=== PATIENT | female | born 1980 | race African-American/Black ===

== ENCOUNTER 2016-12-28 15:02 | Emergency (ER) | payer MEDICAID ==
[~2016-12-28] VITALS: Ht 170.2 cm; Wt 65.8 kg
[2016-12-28 15:16] VITALS: BP 130/95
== END 2016-12-28 23:16 | disposition left against medical advice (07) ==
LOC: ER 15:08
DX: R10.9 Unspecified abdominal pain (principal); Z53.21 Procedure and treatment not carried out due to patient leaving prior to being seen by health care provider

== ENCOUNTER 2017-10-04 12:08 | Emergency (ER) | payer MEDICAID ==
[~2017-10-04] VITALS: Ht 170.2 cm; Wt 63.5 kg
[2017-10-04 12:48] VITALS: BP 153/99
[2017-10-04] MEDS ORDERED: ACETAMINOPHEN 325 MG TAB PO ONE (14:45)
[2017-10-04] MEDS ORDERED: ONDANSETRON ODT 4 MG TAB PO ONE (15:00)
== END 2017-10-04 15:05 | disposition home or self-care (01) ==
LOC: EDUNIT# 12:08 → ER 12:08 → EDBD 12:08 → ER 15:02
DX: J20.9 Acute bronchitis, unspecified (principal); I10 Essential (primary) hypertension; Z88.0 Allergy status to penicillin
CPT/HCPCS: 71046; 99284; Q0162

== ENCOUNTER 2022-10-01 18:15 | Emergency (ER) | payer MEDICAID ==
[~2022-10-01] VITALS: Ht 170.2 cm; Wt 72.2 kg
[2022-10-01] MEDS ORDERED: cloNIDine HCL 0.1 MG TAB PO ONE (19:00)
[2022-10-01 19:25] LABS: Basophils # (auto) 0.1 10 ^3/uL (0-0.2); Basophils % (auto) 0.8 % (0.0-2.0); Eosinophils # (auto) 0 10 ^3/uL (0-0.8); Eosinophils % (auto) 0.5 % (0.0-7.0); Hemoglobin 12.8 g/dL (12.2-16.2); Lymphocytes # (auto) 1.9 10 ^3/uL (0.4-5.4); Lymphocytes % (auto) 30.6 % (10.0-50.0); Mean Corpuscular Hemoglobin 30.6 pg (28.0-32.0); Mean Corpuscular Hgb Conc. 33.7 g/dL (32.0-36.0); Monocytes # (auto) 0.4 10 ^3/uL (0-1.3); Monocytes % (auto) 6.2 % (0.0-12.0); Neutrophils # (auto) 3.8 10 ^3/uL (1.6-8.6); Neutrophils % (auto) 61.9 % (37.0-80.0); Red Blood Cells 4.18 10^6/uL (4.0-5.20); Red Cell Distribution Width 15.6 % (11.8-14.3); White Blood Cell 6.1 10^3/uL (4.4-10.8)
[2022-10-01 19:35] LABS: Albumin 3.7 g/dL (3.4-5.0); Calcium 9.3 mg/dL (8.5-10.1); Potassium 3.9 mmol/L (3.5-5.1)
[2022-10-01 19:38] LABS: BUN/Creatinine Ratio 15.7
[2022-10-01 19:40] LABS: Bilirubin, Total 0.5 mg/dL (0.2-1.0); Total Protein 7.5 g/dL (6.4-8.2)
[2022-10-01 19:46] LABS: INR 0.98 (0.9-1.15); Partial Thromboplastin Time 23.9 sec (24.6-33.4)
[2022-10-01] MEDS ORDERED: CEPH-510 PO (20:12)
[2022-10-01 20:38] VITALS: BP 152/98
== END 2022-10-01 21:05 | disposition home or self-care (01) ==
LOC: ER 18:15
DX: I10 Essential (primary) hypertension (principal); N39.0 Urinary tract infection, site not specified; F17.210 Nicotine dependence, cigarettes, uncomplicated; Z88.0 Allergy status to penicillin
CPT/HCPCS: 36415; 71045; 80053; 83880; 84484; 85025; 85610; 85730; 93005

== ENCOUNTER 2023-02-22 00:43 | Emergency (ER) | payer MEDICAID ==
[~2023-02-22] VITALS: Ht 170.2 cm; Wt 69.5 kg
[~2023-02-22 00:43] MED LIST: CEPH-510 PO
[2023-02-22 00:59] VITALS: BP 151/102
[2023-02-22 01:55] LABS: Basophils # (auto) 0 10 ^3/uL (0-0.2); Basophils % (auto) 0.4 % (0.0-2.0); Eosinophils # (auto) 0.1 10 ^3/uL (0-0.8); Eosinophils % (auto) 1.4 % (0.0-7.0); Hematocrit 33.9 % (36.0-46.0); Hemoglobin 11.1 g/dL (12.2-16.2); Mean Corpuscular Hemoglobin 29.4 pg (28.0-32.0); Mean Corpuscular Hgb Conc. 32.7 g/dL (32.0-36.0); Mean Corpuscular Volume 89.9 fL (80.0-100.0); Monocytes # (auto) 0.6 10 ^3/uL (0-1.3); Monocytes % (auto) 6.2 % (0.0-12.0); Neutrophils # (auto) 7.5 10 ^3/uL (1.6-8.6); Red Blood Cells 3.77 10^6/uL (4.0-5.20); Red Cell Distribution Width 16.1 % (11.8-14.3); White Blood Cell 10.3 10^3/uL (4.4-10.8)
[2023-02-22 02:08] LABS: Albumin 3.1 g/dL (3.4-5.0); BUN/Creatinine Ratio 19.4 (10.0-20.0); Calcium 8.8 mg/dL (8.5-10.1); INR 0.92 (0.9-1.15); Partial Thromboplastin Time 25.9 sec (24.6-33.4); Potassium 3.7 mmol/L (3.5-5.1)
[2023-02-22 02:12] LABS: Bilirubin, Total 0.3 mg/dL (0.2-1.0); Total Protein 7.1 g/dL (6.4-8.2)
[2023-02-23] MEDS ORDERED: CLON-853 PO (04:35)
[2023-02-23] MEDS ORDERED: HYDR25TA5 PO (04:35)
[2023-02-23] MEDS ORDERED: INTE1INJ3 SC (04:35)
[2023-02-23] MEDS ORDERED: CLON0.1T PO (04:35)
== END 2023-02-22 08:03 | disposition home or self-care (01) ==
LOC: ER 00:43
DX: R07.89 Other chest pain (principal); R20.2 Paresthesia of skin; I10 Essential (primary) hypertension; F17.210 Nicotine dependence, cigarettes, uncomplicated; Z79.899 Other long term (current) drug therapy; Z88.0 Allergy status to penicillin
CPT/HCPCS: 36415; 70450; 71045; 71250; 72125; 74176; 80053; 83735; 83880; 84443; 84484; 85025; 85379; 85610; 85730; 93005

== ENCOUNTER 2023-02-22 08:11 | Inpatient (IN) | payer MEDICAID ==
[~2023-02-22] VITALS: Ht 170.2 cm; Wt 75.8 kg
[2023-02-22] MEDS ORDERED: methylPREDNISolone SOD SUCC 125 MG/2 ML VL IV ONE (10:45)
[2023-02-22] MEDS ORDERED: methylPREDNISolone SOD SUCC 1,000 MG in SODIUM CHL 0.9% 100 ML IV ONE (12:15)
[2023-02-22] MEDS ORDERED: MORPHINE SULFATE INJ 2 MG/ml SYRG IV PRN (13:30)
[2023-02-22] MEDS ORDERED: NITROGLYCERIN 0.4 MG SL TAB SL PRN (13:30)
[2023-02-22] MEDS ORDERED: methylPREDNISolone SOD SUCC 125 MG/2 ML VL IV SCH (14:30)
[2023-02-22] MEDS: HYDROcodone-ACET 5/325MG TAB PO PRN (14:50)
[2023-02-22 18:21] LABS: Basophils # (auto) 0 10 ^3/uL (0-0.2); Basophils % (auto) 0.1 % (0.0-2.0); Eosinophils # (auto) 0 10 ^3/uL (0-0.8); Eosinophils % (auto) 0.1 % (0.0-7.0); Hemoglobin 11.9 g/dL (12.2-16.2); Lymphocytes # (auto) 0.4 10 ^3/uL (0.4-5.4); Mean Corpuscular Hemoglobin 29.7 pg (28.0-32.0); Mean Corpuscular Volume 90.1 fL (80.0-100.0); Monocytes # (auto) 0.1 10 ^3/uL (0-1.3); Monocytes % (auto) 0.6 % (0.0-12.0); Neutrophils # (auto) 8.3 10 ^3/uL (1.6-8.6); Neutrophils % (auto) 94.2 % (37.0-80.0); Red Cell Distribution Width 16.4 % (11.8-14.3); White Blood Cell 8.8 10^3/uL (4.4-10.8)
[2023-02-22] MEDS ORDERED: LORazepam 2MG/ML-1ML VIAL IV PRN (18:30)
[2023-02-22 18:39] LABS: Albumin 3.6 g/dL (3.4-5.0); Calcium 8.9 mg/dL (8.5-10.1); Potassium 3.9 mmol/L (3.5-5.1)
[2023-02-22 18:51] LABS: BUN/Creatinine Ratio 15.3 (10.0-20.0); Bilirubin, Total 0.2 mg/dL (0.2-1.0)
[2023-02-22] MEDS: ALPRAZolam 0.5 MG TAB PO PRN (19:09)
[2023-02-22 21:46] VITALS: BP 167/110
[2023-02-22 22:00] VITALS: BP 167/110
[2023-02-22] MEDS: AMITRIPTYLINE HCL 25 MG TAB PO SCH (22:49)
[2023-02-22] MEDS: cloNIDine HCL 0.1 MG TAB PO PRN (22:50)
[2023-02-23] VITALS (8 sets, daily range): BP systolic 125–154; BP diastolic 84–100
[2023-02-23] MEDS ORDERED: CLON-853 PO (04:35)
[2023-02-23] MEDS ORDERED: HYDR25TA5 PO (04:35)
[2023-02-23] MEDS ORDERED: CLON0.1T PO (04:35)
[2023-02-23] MEDS ORDERED: INTE1INJ3 SC (04:35)
[2023-02-23] MEDS: FAMOTIDINE 20 MG TAB PO SCH (08:19)
[2023-02-23] MEDS: METOPROLOL SUCCINATE XL 50 MG TAB PO SCH (08:20)
[2023-02-23] MEDS: HYDROcodone-ACET 5/325MG TAB PO PRN ×2 (08:22→14:34)
[2023-02-23] MEDS: LISINOPRIL 10 MG TAB PO SCH (08:22)
[2023-02-23] MEDS: HCTZ 25 MG TAB PO SCH (08:23)
[2023-02-23] MEDS ORDERED: methylPREDNISolone SOD SUCC 125 MG/2 ML VL IM SCH (10:00)
[2023-02-23] MEDS: methylPREDNISolone SOD SUCC 1,000 MG in SODIUM CHL 0.9% 250 ML IV SCH (10:30)
[2023-02-23] MEDS: ENOXAPARIN SOD 40 MG/0.4 ML SYRINGE SC SCH (10:48)
[2023-02-23 11:18] LABS: Urine Bacteria FEW /hpf (None Seen); Urine Blood Negative /uL (Negative); Urine Specific Gravity 1.023 (1.001-1.035); Urine WBC 1 /hpf (0 - 5)
[2023-02-23 11:22] LABS: Alcohol, Urine < 3.0 mg/dL (0-10); Amphetamine Screen, Urine NEGATIVE (NEGATIVE); Barbiturate Scree,Urine NEGATIVE (NEGATIVE); Benzodiazephine Screen, Urine POSITIVE (NEGATIVE); Cannabinoid Screen, Urine NEGATIVE (NEGATIVE); Cocaine Screen, Urine NEGATIVE (NEGATIVE); Opiate Scree,Urine NEGATIVE (NEGATIVE); Phencyclidine Screen, Urine NEGATIVE (NEGATIVE)
[2023-02-23] MEDS ORDERED: GADOTERATE MEG 10 MMOL/20ml INJ (0.5MMOL/ml) IV ONE (11:23)
[2023-02-23] MEDS: ALPRAZolam 0.5 MG TAB PO PRN (15:38)
[2023-02-23] MEDS: cloNIDine HCL 0.1 MG TAB PO PRN (16:37)
[2023-02-23] MEDS: AMITRIPTYLINE HCL 25 MG TAB PO SCH (21:46)
[2023-02-24 05:00] VITALS: BP 156/99
[2023-02-24] MEDS: cloNIDine HCL 0.1 MG TAB PO PRN (06:36)
[2023-02-24 09:00] VITALS: BP 159/89
[2023-02-24] MEDS: BETASERON SC SCH (10:00)
[2023-02-24] MEDS: HYDROcodone-ACET 5/325MG TAB PO PRN ×2 (10:18→18:54)
[2023-02-24] MEDS: METOPROLOL SUCCINATE XL 50 MG TAB PO SCH (10:19)
[2023-02-24] MEDS: LISINOPRIL 10 MG TAB PO SCH (10:19)
[2023-02-24] MEDS: FAMOTIDINE 20 MG TAB PO SCH (10:20)
[2023-02-24] MEDS: ENOXAPARIN SOD 40 MG/0.4 ML SYRINGE SC SCH (10:21)
[2023-02-24] MEDS: HCTZ 25 MG TAB PO SCH (10:21)
[2023-02-24] MEDS: methylPREDNISolone SOD SUCC 1,000 MG in SODIUM CHL 0.9% 250 ML IV SCH (11:22)
[2023-02-24 13:00] VITALS: BP 152/95
[2023-02-24] MEDS: ALPRAZolam 0.5 MG TAB PO PRN (13:39)
[2023-02-24 17:00] VITALS: BP 149/91
[2023-02-24 22:00] VITALS: BP 168/92
[2023-02-24] MEDS: AMITRIPTYLINE HCL 25 MG TAB PO SCH (22:27)
[2023-02-25] MEDS: ALPRAZolam 0.5 MG TAB PO PRN (01:53)
[2023-02-25 05:00] VITALS: BP 160/100
[2023-02-25 06:38] VITALS: BP 141/101
[2023-02-25 09:00] VITALS: BP 151/99
[2023-02-25] MEDS: ENOXAPARIN SOD 40 MG/0.4 ML SYRINGE SC SCH (09:29)
[2023-02-25] MEDS: METOPROLOL SUCCINATE XL 50 MG TAB PO SCH (09:30)
[2023-02-25] MEDS: LISINOPRIL 10 MG TAB PO SCH (09:30)
[2023-02-25] MEDS: HCTZ 25 MG TAB PO SCH (09:31)
[2023-02-25] MEDS: HYDROcodone-ACET 5/325MG TAB PO PRN ×2 (09:31→20:38)
[2023-02-25] MEDS: FAMOTIDINE 20 MG TAB PO SCH (09:31)
[2023-02-25] MEDS: methylPREDNISolone SOD SUCC 1,000 MG in SODIUM CHL 0.9% 250 ML IV SCH (10:15)
[2023-02-25] MEDS ORDERED: ALBUTEROL SULF HFA 90MCG INH 200DOSE IN PRN (11:15)
[2023-02-25] MEDS ORDERED: ALBUTEROL SULF 2.5 MG/0.5ML(0.5%) NEB SOLN NEB SCH (12:00)
[2023-02-25 13:00] VITALS: BP 165/107
[2023-02-25] MEDS: cloNIDine HCL 0.1 MG TAB PO PRN (14:46)
[2023-02-25] MEDS: LEVALBUTEROL HCL 1.25 MG/3 ML NEB NEB SCH (18:17)
[2023-02-25] MEDS: AMITRIPTYLINE HCL 25 MG TAB PO SCH (21:37)
[2023-02-25] MEDS: PROMETHAZINE W/CODEINE 5 ML ORAL SYRUP PO PRN (21:42)
[2023-02-25 22:31] VITALS: BP 159/97
[2023-02-26 00:21] VITALS: BP 157/97
[2023-02-26 04:15] VITALS: BP 163/93
[2023-02-26] MEDS: LEVALBUTEROL HCL 1.25 MG/3 ML NEB NEB SCH ×3 (06:54→19:05)
[2023-02-26 09:00] VITALS: BP 163/91
[2023-02-26] MEDS ORDERED: LISINOPRIL 10 MG TAB PO SCH (10:00)
[2023-02-26] MEDS: FAMOTIDINE 20 MG TAB PO SCH (10:08)
[2023-02-26] MEDS: METOPROLOL SUCCINATE XL 50 MG TAB PO SCH (10:11)
[2023-02-26] MEDS: HCTZ 25 MG TAB PO SCH (10:12)
[2023-02-26] MEDS: ENOXAPARIN SOD 40 MG/0.4 ML SYRINGE SC SCH (10:12)
[2023-02-26 13:00] VITALS: BP 135/84
[2023-02-26] MEDS: HYDROcodone-ACET 5/325MG TAB PO PRN (13:08)
[2023-02-26] MEDS: methylPREDNISolone SOD SUCC 1,000 MG in SODIUM CHL 0.9% 250 ML IV SCH (13:08)
[2023-02-26] MEDS: ALPRAZolam 0.5 MG TAB PO PRN (15:35)
[2023-02-26] MEDS: BETASERON SC SCH (16:15)
[2023-02-26 16:37] VITALS: BP 139/89
[2023-02-26] MEDS: PROMETHAZINE W/CODEINE 5 ML ORAL SYRUP PO PRN (19:50)
[2023-02-26 22:00] VITALS: BP 150/94
[2023-02-26] MEDS: AMITRIPTYLINE HCL 25 MG TAB PO SCH (22:06)
[2023-02-27 05:00] VITALS: BP 174/90
[2023-02-27] MEDS: cloNIDine HCL 0.1 MG TAB PO PRN (05:20)
[2023-02-27 06:20] VITALS: BP 144/87
[2023-02-27] MEDS: LEVALBUTEROL HCL 1.25 MG/3 ML NEB NEB SCH ×3 (07:03→11:40)
[2023-02-27 09:00] VITALS: BP 166/81
[2023-02-27] MEDS ORDERED: METO-6 PO (09:25)
[2023-02-27] MEDS ORDERED: LISI40TA16 PO (09:25)
[2023-02-27 10:47] VITALS: BP 144/87
== END 2023-02-27 11:36 | disposition home or self-care (01) | DRG 43 ==
LOC: ER 08:11 → TELE-WESTW 16:43
PROVIDERS: ADMIT Nurse Practitioner Family; ATTEND Nurse Practitioner Family
DX: G35 Multiple sclerosis (principal); E86.0 Dehydration; F41.9 Anxiety disorder, unspecified; I10 Essential (primary) hypertension; Z20.822 Contact with and (suspected) exposure to COVID-19; R20.2 Paresthesia of skin; F17.200 Nicotine dependence, unspecified, uncomplicated; Z82.49 Family history of ischemic heart disease and other diseases of the circulatory system; Z83.3 Family history of diabetes mellitus
CPT/HCPCS: 36415; 70553; 80053; 80307; 81001; 85025; 87426; 87804; 94640; 97163; G0378

== ENCOUNTER 2024-05-25 15:17 | Emergency (ER) | payer MEDICAID ==
[~2024-05-25] VITALS: Ht 177.8 cm; Wt 72.0 kg
[~2024-05-25 15:17] MED LIST changes: +CLON-853 PO; +CLON0.1T PO; +HYDR25TA5 PO; +INTE1INJ3 SC; +LISI40TA16 PO; +METO-6 PO
[2024-05-25 15:51] LABS: Basophils # (auto) 0 10 ^3/uL (0-0.2); Basophils % (auto) 0.7 % (0.0-2.0); Eosinophils # (auto) 0 10 ^3/uL (0-0.8); Eosinophils % (auto) 0.6 % (0.0-7.0); Hematocrit 34.6 % (36.0-46.0); Hemoglobin 11.3 g/dL (12.2-16.2); Lymphocytes % (auto) 20.9 % (10.0-50.0); Mean Corpuscular Hemoglobin 27.9 pg (28.0-32.0); Mean Corpuscular Hgb Conc. 32.5 g/dL (32.0-36.0); Mean Corpuscular Volume 85.9 fL (80.0-100.0); Monocytes # (auto) 0.6 10 ^3/uL (0-1.3); Monocytes % (auto) 13.1 % (0.0-12.0); Neutrophils # (auto) 3.1 10 ^3/uL (1.6-8.6); Neutrophils % (auto) 64.7 % (37.0-80.0); Nucleated Red Blood Cells % 0.1 %; Platelet Count (auto) 234 10^3/uL (140-450); Red Blood Cells 4.03 10^6/uL (4.0-5.20); Red Cell Distribution Width 17.3 % (11.8-14.3); White Blood Cell 4.7 10^3/uL (4.4-10.8)
[2024-05-25] MEDS ORDERED: IBUPROFEN 600 MG TAB PO ONE (16:15)
[2024-05-25] MEDS: KETOROLAC TROMETH 30 MG/ML 1ML VIAL IM ONE (16:29)
[2024-05-25 16:36] VITALS: BP 131/99; RESP 92; O2SAT 98
[2024-05-25 17:00] VITALS: PULSE 85
[2024-05-25 17:29] LABS: Rapid Influenza A Negative (Negative); Rapid Influenza B Negative (Negative)
[2024-05-25 17:30] LABS: COVID19 ANTIGEN SOFIA FIA NEGATIVE (NEGATIVE)
[2024-05-25 17:41] LABS: Alanine Aminotransferase 20 U/L (7-40); Albumin 3.9 g/dL (3.2-4.8); Alkaline Phosphatase 59 U/L (46-116); Anion Gap 6 (5-15); Aspartate Aminotransferase 18 U/L (13-40); BUN/Creatinine Ratio 12.5 (10.0-20.0); Bilirubin, Total 0.4 mg/dL (0.2-1.0); Blood Urea Nitrogen 10 mg/dL (9-23); Calcium 9.4 mg/dL (8.7-10.4); Carbon Dioxide 23 mmol/L (20-30); Chloride 109 mmol/L (98-107); Glucose 88 mg/dL (74-106); Potassium 3.6 mmol/L (3.5-5.1); Sodium 138 mmol/L (136-145); Total Protein 6.8 g/dL (5.7-8.2)
[2024-05-25] MEDS ORDERED: PROM1SOL4 PO (17:42)
[2024-05-25] MEDS ORDERED: METH4PAK PO (17:42)
== END 2024-05-25 19:09 | disposition home or self-care (01) ==
LOC: ER 15:17
DX: B34.9 Viral infection, unspecified (principal); I10 Essential (primary) hypertension; Z87.891 Personal history of nicotine dependence; Z88.0 Allergy status to penicillin; Z79.899 Other long term (current) drug therapy; Z20.822 Contact with and (suspected) exposure to COVID-19
CPT/HCPCS: 36415; 71045; 80053; 83690; 83880; 84484; 85025; 85379; 87426; 87804; 93005; 96372; 99285; J1885

== ENCOUNTER 2025-01-16 02:58 | Emergency (ER) | payer MEDICAID ==
[~2025-01-16] VITALS: Ht 170.2 cm; Wt 78.0 kg
[~2025-01-16 02:58] MED LIST changes: +METH4PAK PO; +PROM1SOL4 PO
--- NOTE | 2025-01-16 03:24 | ECG ---
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
[2025-01-16 03:28] VITALS: BP 143/99; PULSE 75; RESP 16; TEMP 98; O2SAT 98
--- NOTE | 2025-01-16 03:29 | ED.PDOC ---
History of Present Illness HPI Comments 44-year-old female with PMHx MS, HTN presents with a chief complaint of SOB x 3 hours. Patient states that she is having a flare up of her MS and was feeling SOB. Patient mentions that she cannot take her medications due to a surgery she is scheduled to have later today at 0500. Patient saw her vital signs, was satisfied, and decided to leave the ER. Chief Complaint: Shortness of Breath Time Seen by MD: 03:12 Primary Care Provider: [facility] Reviewed Notes: Medications, Allergies Allergies: Coded Allergies: Penicillins (Verified Allergy, Unknown, 10/04/17) Home Meds Active Scripts Methylprednisolone (Medrol Dosepak) 4 Mg Mk, 4 MG PO UD, #21 TAB UAD Prov:PANKAJ BAUMAN PAC 05/25/24 Promethazine-Dm (Promethazine Dm 6.25-15 mg/5Ml) 1 Christina Christina, 5 ML PO Q4HPRN PRN, #473 ML Prov:PANKAJ BAUAMN PAC 05/25/24 Lisinopril (Lisinopril) 40 Mg Tab, 1 TAB PO DAILY, #30 TAB 5 Refills Prov:GABINO JACINTO GRAINING PRESS OPERATOR 02/27/23 Metoprolol Succinate (Toprol Xl) 50 Mg Tab, 25 MG PO DAILY for 30 Days, #15 TAB Prov:GABINO JACINTO GRAINING PRESS OPERATOR 02/27/23 Cephalexin ( Keflex 500) 500 Mg Cap, 2 CAP PO BID for 7 Days, #28 CAP Prov:ZECHARIAH ANSARI DO 10/01/22 Reported Medications Clonazepam (Clonazepam) 1 Mg Tab, 1 TAB PO BIDPRN 02/23/23 Clonidine Hydrochloride (Clonidine Hcl) 0.1 Mg Tab, 1 TAB PO 02/23/23 Hctz (Hydrochlorothiazide) 25 Mg Tab, 1 TAB PO DAILY 02/23/23 Interferon Beta-1B (Betaseron) 0.3 Mg Inj, SC 02/23/23 Information Source: Patient Mode of Arrival: Ambulatory Severity: Moderate Timing: Hours Duration: Since onset Prehospital treatment: None Vital Signs Vital Signs Date Time Temp Pulse Resp B/P (MAP) Pulse Ox O2 Delivery O2 Flow Rate FiO2 01/16/25 03:05 67 Physical Exam General: Awake, alert and oriented. No acute distress. Skin: Skin in warm, dry and intact. Appropriate color for ethnicity. HEENT: The head is normocephalic and atraumatic. Conjunctivae are clear without exudates or hemorrhage. Sclera is non-icteric. EOM are intact. PERRLA. No signs of nystagmus. Eyelids are normal in appearance without swelling or lesions. Oral mucosa is pink and moist Neck: The neck is supple with normal range of motion. No JVD. Cardiac: Heart rate and rhythm are normal. No murmurs, gallops, or rubs are a uscultated. Respiratory: No signs of respiratory distress. Lung sounds are clear in all lobes bilaterally without rales, rhonchi, or wheezes. Abdominal: Abdomen is soft, non-tender without distention. Bowel sounds are present and normoactive in all four quadrants. Extremities: Bilateral nonpitting lower extremity edema Neurological: The patient is awake, alert and oriented to person, place, and time with normal speech. Speech is clear. There is no facial asymmetry. Normal gait. Wood Fence Erector strength 4/5 bilaterally Psychiatric: Appropriate mood and affect. Good judgement and insight. Review of Systems: REVIEW OF SYSTEMS: No fever, no chills, HEENT: No neck pain, no blurred vision Cardiac: No chest pain. No palpitations. Positive chest soreness. Lungs: Positive shortness of breath, GI: No abdominal pain, no vomiting Musculoskeletal: No joint pain , no back pain Skin: No rash, no wound Neuro: No headache, no dizziness, no syncope, positive generalized weakness and paresthesias Past Medical History PAST MEDICAL HISTORY: HTN Past Medical History (Other): MS Surgical History: Denies all surgeries CLEANER HOUSEKEEPING History: No Pertinent CLEANER HOUSEKEEPING History Family History Family History: Reviewed,noncontributory to illness Social History Smoker: Cigar Alcohol: Occasionally Drugs: Denies Drug Use Lives In: Home Was a procedure done? Was a procedure done?: No EKG EKG : Comments Rate 67, sinus rhythm, QTC 426, QRS axis 34, OR interval 146. No STEMI Differential Dx Considerations may include: MS flare, urinary tract infection, ACS, pulmonary embolism, pneumonia, viral infection, muscle spasm, other infection, gastritis, cholecystitis, anxiety, other X-Ray, Labs, Meds, VS Vital Signs Date Time Temp Pulse Resp B/P (MAP) Pulse Ox O2 Delivery O2 Flow Rate FiO2 01/16/25 03:05 67 Time of 1ST Reevaluation: 03:42 Reevaluation 1ST: Unchanged Patient Education/Counseling: Need For Follow Up, Other (Patient was offered further evaluation including diagnostic studies, symptomatic treatment.) Family Education/Counseling: No Family Present Departure 1 Departure Time of Disposition: 03:42 Impression: Primary Impression: Shortness of breath Additional Impressions: Chest discomfort History of multiple sclerosis Disposition: 07 LEFT AWOL/ELOPED Condition: Other Comments 44-year-old female with a history of multiple sclerosis treated with Betaseron, currently off medication for planned gynecologic surgery this morning. Patient presenting with 3 hours of thoracic tightness described as MS hug. Patient w as seen and examined in triage. Patient's vital signs were stable. Exam showed no sign of infection, respiratory distress, focal neurologic deficit. Patient decided to leave the emergency department without further evaluation or treatment. Critical Care Note Critical Care Time?: No Stability Stability form required: No Heart Score Heart Score: Heart Score Response (Comments) Value History N/A 0 EKG N/A 0 Age N/A 0 Risk Factors N/A 0 Troponin N/A 0 Total 0 I personally scribed for SKYLER DIXON MD ([email or web address]) on 01/16/25 at 03:29. Electronically submitted by Ty Valdes ([email or web address]). I personally scribed for SKYLER DIXON MD ([email or web address]) on 01/16/25 at 03:29. Electronically submitted by Ty Valdes ([email or web address]). SKYLER DIXON MD Jan 16, 2025 03:29
== END 2025-01-16 03:58 | disposition left against medical advice (07) ==
LOC: ER 03:06
DX: R07.89 Other chest pain (principal); R06.02 Shortness of breath; G35 Multiple sclerosis; I10 Essential (primary) hypertension; F17.290 Nicotine dependence, other tobacco product, uncomplicated; Z86.69 Personal history of other diseases of the nervous system and sense organs; Z88.0 Allergy status to penicillin; Z79.899 Other long term (current) drug therapy
CPT/HCPCS: 93005

== ENCOUNTER 2025-01-20 23:23 | Inpatient (IN) | payer MEDICAID ==
[~2025-01-20] VITALS: Ht 170.2 cm; Wt 81.1 kg
--- NOTE | 2025-01-21 00:11 | ED.PDOC ---
History of Present Illness HPI Comments 44-year-old female who came to ER for body pains. Patient has history of multiple sclerosis. Had laparoscopic surgery 5 days ago, insisted she has been having flare-up of her multiple sclerosis. Has been having shortness a breath and burning generalized body pain since then. No fever noted. Chief Complaint: Body pains Time Seen by MD: 00:11 Primary Care Provider: [facility] Reviewed Notes: Nurses Notes Allergies: Coded Allergies: Penicillins (Verified Allergy, Unknown, 10/04/17) Home Meds Active Scripts Methylprednisolone (Medrol Dosepak) 4 Mg Mk, 4 MG PO UD, #21 TAB UAD Prov:PANKAJ BAUMAN PAC 05/25/24 Promethazine-Dm (Promethazine Dm 6.25-15 mg/5Ml) 1 Christina Christina, 5 ML PO Q4HPRN PRN, #473 ML Prov:PANKAJ BAUMAN PAC 05/25/24 Lisinopril (Lisinopril) 40 Mg Tab, 1 TAB PO DAILY, #30 TAB 5 Refills Prov:GABINO JACINTO CUSTOMER SERVICE OFFICER 02/27/23 Metoprolol Succinate (Toprol Xl) 50 Mg Tab, 25 MG PO DAILY for 30 Days, #15 TAB Prov:GABINO JACINTO CUSTOMER SERVICE OFFICER 02/27/23 Cephalexin ( Keflex 500) 500 Mg Cap, 2 CAP PO BID for 7 Days, #28 CAP Prov:ZECHARIAH ANSARI DO 10/01/22 Reported Medications Clonazepam (Clonazepam) 1 Mg Tab, 1 TAB PO BIDPRN 02/23/23 Clonidine Hydrochloride (Clonidine Hcl) 0.1 Mg Tab, 1 TAB PO 02/23/23 Hctz (Hydrochlorothiazide) 25 Mg Tab, 1 TAB PO DAILY 02/23/23 Interferon Beta-1B (Betaseron) 0.3 Mg Inj, SC 02/23/23 Information Source: Patient Mode of Arrival: Ambulatory Severity: Moderate Timing: Days Duration: Intermittent Past Medical History PAST MEDICAL HISTORY: HTN Past Medical History (Other): Multiple sclerosis Surgical History: Denies all surgeries Surgical History (Other): Laparoscopic endometriosis SEGMENTAL WALL INSTALLER History: No Pertinent SEGMENTAL WALL INSTALLER History Family History Family History: Reviewed,noncontributory to illness Social History Smoker: Non-Smoker Alcohol: Occasionally Drugs: Denies Drug Use Lives In: Home Constitutional: reports: malaise, others (Generalized body pains); denies: chills, diaphoresis, fatigue, fever, sweats, weakness EENTM: denies: blurred vision, double vision, ear bleeding, ear discharge, ear drainage, ear pain, ear ringing, eye pain, eye redness, hearing loss, mouth pain, mouth swelling, nasal discharge, nose bleeding, nose congestion, nose pain, photophobia, tearing, throat pain, throat swelling, voice changes, others Respiratory: reports: SOB at rest, shortness of breath, SOB with excertion; denies: cough, hemoptysis, orthopnea, stridor, wheezing, others Cardiovascular: denies: chest pain, dizzy spells, diaphoresis, Dyspnea on exertion, edema, irregular heart beat, left arm pain, lightheadedness, palpitations, PND, syncope, others Gastrointestinal: denies: abdomen distended, abdominal pain, blood streaked bowels, constipated, diarrhea, dysphagia, difficulty swallowing, hematemesis, melena, nausea, poor appetite, poor fluid intake, rectal bleeding, rectal pain, vomiting, others Genitourinary: denies: abnormal vagina bleeding, burning, dyspareunia, dysuria, flank pain, frequency, hematuria, incontinence, pain, , vagina discharge, urgency, others Neurological: denies: dizziness, fainting, headache, left sided numbness, left sided weakness, numbness, paresthesia, pre-existing deficit, right sided numbness, right sided weakness, seizure, speech problems, tingling, tremors, weakness, others Musculoskeletal: denies: back pain, gout, joint pain, joint swelling, muscle pain, muscle stiffness, neck pain, others Integumetry: denies: bruises, change in color, change in hair/nails, dryness, laceration, lesions, lumps, rash, wounds, others Allergic/Immunocompromised: denies: Difficulty Healing, Frequent Infections, Hives, Itching, others Hematologic/Lymphatic: denies: anemia, blood clots, easy bleeding, easy bruising, swollen glands, others Endocrine: denies: excessive hunger, excessive sweating, excessive thirst, excessive urination, flushing, intolerance to cold, intolerance to heat, unexplained weight gain, unexplained weight loss, others Psychiatric: denies: anxiety, bipolar disorder, depression, hopeless, panic disorder, schizophrenia, sleepless, suicidal, others Physical Exam General Appearance: No Apparent Distress, Normal HEENT: Normal ENT Inspection, Pharynx Normal, TMs Normal Neck: Full Range of Motion, Non-Tender, Normal, Normal Inspection Respiratory: Chest Non-Tender, Lungs Clear, No Accessory Muscle Use, No Respiratory Distress, Normal Breath Sounds Cardiovascular: No Edema, No JVD, No Murmur, No Gallop, Normal Peripheral Pulses, Regular Rate/Rhythm Breast Exam: Deferred Gastrointestinal: No Organomegaly, Non Tender, No Pulsatile Mass, Normal Bowel Sounds, Soft Genitalia: Deferred Pelvic: Deferred Rectal: Deferred Extremities: No calf tenderness, Normal capillary refill, Normal inspection, Normal range of motion, Non-tender, No pedal edema Musculoskeletal : Apperance: Normal Neurologic: Alert, vault teller II-XII nml as Tested, No Motor Deficits, Normal Affect, Normal Mood, No Sensory Deficits Cerebellar Function: Normal Reflexes: Normal Skin: Dry, Normal Color, Warm Lymphatic: No Adenopathy Was a procedure done? Was a procedure done?: No Differential Dx Considerations may include: Multiple sclerosis, generalized body pains X-Ray, Labs, Meds, VS Vital Signs Date Time Temp Pulse Resp B/P (MAP) Pulse Ox O2 Delivery O2 Flow Rate FiO2 01/20/25 23:40 98.0 89 18 143/102 (116) 99 98.0 Lab Test 01/21/25 00:23 Range/Units White Blood Count 5.0 4.4-10.8 10^3/uL Red Blood Count 3.76 L 4.0-5.20 10^6/uL Hemoglobin 9.8 L 12.2-16.2 g/dL Hematocrit 30.4 L 36.0-46.0 % Mean Corpuscular Volume 80.8 80.0-100.0 fL Mean Corpuscular Hemoglobin 26.0 L 28.0-32.0 pg Mean Corpuscular Hemoglobin Concent 32.2 32.0-36.0 g/dL Red Cell Distribution Width 18.7 H 11.8-14.3 % Platelet Count 238 140-450 10^3/uL Mean Platelet Volume 7.3 6.9-10.8 fL Neutrophils (%) (Auto) 66.8 37.0-80.0 % Lymphocytes (%) (Auto) 22.5 10.0-50.0 % Monocytes (%) (Auto) 9.1 0.0-12.0 % Eosinophils (%) (Auto) 0.8 0.0-7.0 % Basophils (%) (Auto) 0.8 0.0-2.0 % Neutrophils # (Auto) 3.4 1.6-8.6 10 ^3/uL Lymphocytes # (Auto) 1.1 0.4-5.4 10 ^3/uL Monocytes # (Auto) 0.5 0-1.3 10 ^3/uL Eosinophils # (Auto) 0 0-0.8 10 ^3/uL Basophils # (Auto) 0 0-0.2 10 ^3/uL Nucleated Red Blood Cells 0.1 % Sodium Level 140 136-145 mmol/L Potassium Level 3.5 3.5-5.1 mmol/L Chloride Level 103 98-107 mmol/L Carbon Dioxide Level 28 20-31 mmol/L Anion Gap 9 5-15 Blood Urea Nitrogen 20 9-23 mg/dL Creatinine 0.88 0.550-1.02 mg/dL Glomerular Filtration Rate Calc 84 >90 mL/min BUN/Creatinine Ratio 22.7 H 10.0-20.0 Serum Glucose 91 74-106 mg/dL Calcium Level 9.2 8.7-10.4 mg/dL Time of 1ST Reevaluation: 00:04 Reevaluation 1ST: Unchanged Patient Education/Counseling: Diagnosis, Treatment Family Education/Counseling: No Family Present Departure 1 Departure Time of Disposition: 01:37 (patient with concern for ms flare . labs are benign. will start patient on high dose steroids and admit for neuro consult and further workup) Impression: Primary Impression: Multiple sclerosis exacerbation Additional Impression: Generalized weakness Disposition: 09 ADMITTED INPATIENT Admit to: Med Surg Condition: Serious Critical Care Note Critical Care Time?: No Stability Stability form required: No Heart Score Heart Score: Heart Score Response (Comments) Value History N/A 0 EKG N/A 0 Age N/A 0 Risk Factors N/A 0 Troponin N/A 0 Total 0 I personally scribed for TIARA CHEEK MD ([email or web address]) on 01/21/25 at 00:11. Electronically submitted by Tk Bernstein ([email or web address]). TIARA CHEEK MD Jan 21, 2025 00:11
[2025-01-21 00:31] LABS: Basophils # (auto) 0 10 ^3/uL (0-0.2); Basophils % (auto) 0.8 % (0.0-2.0); Eosinophils # (auto) 0 10 ^3/uL (0-0.8); Eosinophils % (auto) 0.8 % (0.0-7.0); Hematocrit 30.4 % (36.0-46.0); Hemoglobin 9.8 g/dL (12.2-16.2); Lymphocytes # (auto) 1.1 10 ^3/uL (0.4-5.4); Lymphocytes % (auto) 22.5 % (10.0-50.0); Mean Corpuscular Hgb Conc. 32.2 g/dL (32.0-36.0); Mean Corpuscular Volume 80.8 fL (80.0-100.0); Monocytes # (auto) 0.5 10 ^3/uL (0-1.3); Monocytes % (auto) 9.1 % (0.0-12.0); Neutrophils # (auto) 3.4 10 ^3/uL (1.6-8.6); Neutrophils % (auto) 66.8 % (37.0-80.0); Nucleated Red Blood Cells % 0.1 %; Platelet Count (auto) 238 10^3/uL (140-450); Red Blood Cells 3.76 10^6/uL (4.0-5.20); Red Cell Distribution Width 18.7 % (11.8-14.3)
[2025-01-21 00:39] LABS: Chloride 103 mmol/L (98-107); Sodium 140 mmol/L (136-145)
[2025-01-21 00:40] LABS: Anion Gap 9 (5-15); Calcium 9.2 mg/dL (8.7-10.4); Carbon Dioxide 28 mmol/L (20-31)
[2025-01-21 00:45] LABS: BUN/Creatinine Ratio 22.7 (10.0-20.0); Blood Urea Nitrogen 20 mg/dL (9-23); Glucose 91 mg/dL (74-106)
[2025-01-21 00:48] LABS: Potassium 3.5 mmol/L (3.5-5.1)
[2025-01-21] MEDS: methylPREDNISolone SOD SUCC 1,000 MG in SODIUM CHL 0.9% 250 ML IV ONE ×2 (02:14→22:45)
[2025-01-21] MEDS: methylPREDNISolone SOD SUCC 125 MG/2 ML VL ONE (02:14)
[2025-01-21] MEDS: ONDANSETRON HCL 4 MG/2 ML VIAL IV ONE (02:54)
[2025-01-21] MEDS: MORPHINE SULFATE 4 MG/ML SYR/VIAL IV ONE (02:54)
[2025-01-21 04:17] LABS: Urine Bacteria None Seen /hpf (None Seen)
[2025-01-21 04:23] LABS: Urine Blood TRACE /uL (Negative); Urine Clarity Clear (Clear); Urine Color Light-Yellow (Yellow); Urine Mucus FEW (None Seen); Urine Protein, UAD Negative (Negative); Urine Specific Gravity 1.027 (1.001-1.035); Urine Squamous Epithelial Cell FEW /hpf (<5); Urine Urobilinogen Normal (Negative); Urine WBC 1 /HPF (0-5); Urine pH 6.5 (5.0-9.0)
[2025-01-21] MEDS: HYDROcodone-ACET 10/325MG TAB PO ONE (07:30)
--- NOTE | 2025-01-21 08:40 | DVHHP2 ---
Admitting Diagnosis: Generalized body pain History of Present Illness 44 yo female patient with hx of multiple sclerosis c/o generalized body pain. Patient endorses SOB. While in the emergency department the patient was evaluated by the provider, As per provider: Labs, vital signs, and imagining monitored. Patient will be admitted for further evaluation and treatment. I discussed admission with the patient/family and is in agreement to treatment plan. Patient Family History: Diabetes mellitus (DM) FH: arthritis FH: hypertension FH: kidney failure Allergies: Coded Allergies: Penicillins (Verified Allergy, Unknown, 10/04/17) Home Meds Active Scripts Methylprednisolone (Medrol Dosepak) 4 Mg Mk, 4 MG PO UD, #21 TAB UAD Prov:PANKAJ BAUMAN PAC 05/25/24 Promethazine-Dm (Promethazine Dm 6.25-15 mg/5Ml) 1 Christina Christina, 5 ML PO Q4HPRN PRN, #473 ML Prov:PANKAJ BAUMAN PAC 05/25/24 Lisinopril (Lisinopril) 40 Mg Tab, 1 TAB PO DAILY, #30 TAB 5 Refills Prov:GABINO JACINTO FIBERGLASS LUGGAGE MOLDER 02/27/23 Metoprolol Succinate (Toprol Xl) 50 Mg Tab, 25 MG PO DAILY for 30 Days, #15 TAB Prov:GABINO JACINTO FIBERGLASS LUGGAGE MOLDER 02/27/23 Cephalexin ( Keflex 500) 500 Mg Cap, 2 CAP PO BID for 7 Days, #28 CAP Prov:ZECHARIAH ANSARI DO 10/01/22 Reported Medications Lisinopril (Lisinopril) 10 Mg Tab, 1 TAB PO DAILY 01/21/25 Amlodipine Besylate (Amlodipine Besylate) 5 Mg Tab, 1 TAB PO DAILY 01/21/25 Clonazepam (Clonazepam) 1 Mg Tab, 1 TAB PO BIDPRN 02/23/23 Clonidine Hydrochloride (Clonidine Hcl) 0.1 Mg Tab, 1 TAB PO 02/23/23 Hctz (Hydrochlorothiazide) 25 Mg Tab, 1 TAB PO DAILY 02/23/23 Interferon Beta-1B (Betaseron) 0.3 Mg Inj, SC 02/23/23 Current Medications Current Medications Medications (Trade) Dose Ordered Sig/Cris Route PRN Reason Start Time Stop Time Status Last Admin Lorazepam (Ativan Inj) 1 mg ONCE PRN IV MRI 01/21/25 22:45 Methylprednisolone Sodium Succinate 1000 mg/Sodium Chloride 250 ml @ 300 mls/hr Q24H IV 01/22/25 23:00 Pantoprazole Sodium (Protonix Tablet) 40 mg DAILY@0600 PO 01/22/25 06:00 Review of Systems Constitutional: denies chills, denies fever, denies malaise Eyes: denies eye pain, denies vision change ENT: denies ear pain, denies headache, denies nasal congestion, denies painful swallowing, denies voice change Cardiovascular: denies chest pain, denies edema, denies orthopnea, denies palpitations, denies paroxysmal nocturnal dyspnea Respiratory: denies cough, denies shortness of breath Gastrointestinal: denies constipation, denies diarrhea, denies nausea, denies v omiting Genitourinary: denies dysuria, denies frequent urination, denies urethral discharge Musculoskeletal: denies back pain, denies joint pain, denies muscle pain Skin: denies bruising, denies itching, denies rash Neurological: denies focal weakness, denies headache, denies sensory changes Psychiatric: denies anxiety, denies depression Endocrine: denies polydipsia, denies polyuria Hematologic/Lymphatic: denies easy bleeding, denies easy bruising, denies enlarged lymph nodes Allergic/Immunologic: denies allergy, denies hives Vital Signs Vital Signs Date Time Temp Pulse Resp B/P (MAP) Pulse Ox O2 Delivery O2 Flow Rate FiO2 01/22/25 17:00 97.7 75 18 150/95 (113) 98 97.7 01/22/25 08:00 Room Air* 0 21 Physical Exam General Appearance: alert, no distress HEENT: EOMI, PERRLA, normal external inspect of ears, no icterus, no nasal drainage Neck: no carotid bruit, no jugular venous distention (JVD), no lymphadenopathy Chest: normal thorax Respiratory: clear to auscultation, normal air movement Cardiovascular: regular rate and rhythm, no diastolic murmur, no jugular venous distention (JVD), no rub, no systolic murmur Abdominal: soft, no hepatomegaly, no mass, no splenomegaly, no tenderness Genitourinary: grossly normal external Musculoskeletal: no joint tenderness, no swelling Extremities: normal pulses, no calf tenderness, no clubbing, no cyanosis, no edema Skin: no bruising, no jaundice, no rash Neurological: alert, No focal deficit Results Labs Test 01/22/25 06:17 01/21/25 04:16 Range/Units White Blood Count 15.1 #H 4.4-10.8 10^3/uL Red Blood Count 3.88 L 4.0-5.20 10^6/uL Hemoglobin 10.0 L 12.2-16.2 g/dL Hematocrit 30.8 L 36.0-46.0 % Mean Corpuscular Volume 79.5 L 80.0-100.0 fL Mean Corpuscular Hemoglobin 25.7 L 28.0-32.0 pg Mean Corpuscular Hemoglobin Concent 32.3 32.0-36.0 g/dL Red Cell Distribution Width 18.6 H 11.8-14.3 % Platelet Count 260 140-450 10^3/uL Mean Platelet Volume 8.1 6.9-10.8 fL Neutrophils (%) (Auto) 86.4 H 37.0-80.0 % Lymphocytes (%) (Auto) 5.8 L 10.0-50.0 % Monocytes (%) (Auto) 7.7 0.0-12.0 % Eosinophils (%) (Auto) 0.0 0.0-7.0 % Basophils (%) (Auto) 0.1 0.0-2.0 % Neutrophils # (Auto) 13.0 H 1.6-8.6 10 ^3/uL Lymphocytes # (Auto) 0.9 0.4-5.4 10 ^3/uL Monocytes # (Auto) 1.2 0-1.3 10 ^3/uL Eosinophils # (Auto) 0 0-0.8 10 ^3/uL Basophils # (Auto) 0 0-0.2 10 ^3/uL Nucleated Red Blood Cells 0.0 % Sodium Level 139 136-145 mmol/L Potassium Level 3.8 3.5-5.1 mmol/L Chloride Level 107 98-107 mmol/L Carbon Dioxide Level 22 20-31 mmol/L Anion Gap 10 5-15 Blood Urea Nitrogen 12 9-23 mg/dL Creatinine 0.67 0.550-1.02 mg/dL Glomerular Filtration Rate Calc 111 >90 mL/min BUN/Creatinine Ratio 17.9 10.0-20.0 Serum Glucose 103 74-106 mg/dL Calcium Level 9.0 8.7-10.4 mg/dL Total Bilirubin 0.2 0.2-1.0 mg/dL Aspartate Amino Transferase (AST) 14 13-40 U/L Alanine Aminotransferase (ALT) 13 7-40 U/L Alkaline Phosphatase 70 46-116 U/L Total Protein 6.3 5.7-8.2 g/dL Albumin 3.9 3.2-4.8 g/dL Urine Color Light-yellow Yellow Urine Clarity Clear Clear Urine pH 6.5 5.0-9.0 Urine Specific [place] 1.027 1.001-1.035 Urine Protein Negative Negative Urine Ketones Negative Negative Urine Blood Trace H Negative /uL Urine Nitrite Negative Negative Urine Bilirubin Negative Negative Urine Urobilinogen Normal Negative mg/dL Urine Leukocyte Esterase Negative Negative /uL Urine RBC 1 0 - 4 /hpf Urine Microscopic WBC 1 0-5 /HPF Urine Squamous Epithelial Cells Few <5 /hpf Urine Bacteria None seen None Seen /hpf Urine Mucus Few None Seen Urine Glucose Normal Normal mg/dL Plan 1. MS flare Monitor, neurology consult, MRI brain, MRI spine, IV solumedrol 2. HTN Monitor, antihypertensives, DVT prophylaxis , PPI Plan discussed with: Patient, Other GABINO JACINTO NP Jan 21, 2025 08:40
[2025-01-21] MEDS: SODIUM CHLORIDE 0.9% 1,000 ML IV SCH (08:45)
[2025-01-21] MEDS ORDERED: LISI10TA34 PO (08:45)
[2025-01-21] MEDS ORDERED: NITROGLYCERIN 0.4 MG SL TAB SL PRN (08:45)
[2025-01-21] MEDS ORDERED: MORPHINE SULFATE INJ 2 MG/ml SYRG IV PRN (08:45)
[2025-01-21] MEDS ORDERED: ONDANSETRON HCL 4 MG/2 ML VIAL IV PRN (08:45)
[2025-01-21] MEDS ORDERED: AMLO1TAB22 PO (08:45)
[2025-01-21 10:00] VITALS: PULSE 78; RESP 18; O2SAT 98
[2025-01-21] MEDS: methylPREDNISolone SOD SUCC 1,000 MG VL IV SCH (10:00)
[2025-01-21] MEDS: amLODIPine BESYLATE 5 MG TAB PO SCH (10:04)
[2025-01-21] MEDS: ENOXAPARIN SOD 40 MG/0.4 ML SYRINGE SC SCH (10:04)
[2025-01-21] MEDS: LISINOPRIL 5 MG TAB PO SCH (10:05)
[2025-01-21] MEDS: PANTOPRAZOLE 40 MG TAB PO SCH (10:05)
[2025-01-21 11:53] VITALS: BP 118/75; PULSE 82; RESP 18; TEMP 98.6; O2SAT 98
[2025-01-21 14:22] VITALS: BP 118/75; PULSE 82; RESP 18; TEMP 98.6; O2SAT 98
--- NOTE | 2025-01-21 17:15 | DVH ---
CHEST RADIOGRAPH Indication: SOB/ Chest tightness Technique: Single frontal view of the chest was obtained Comparison: XY CHEST PORTABLE on DOS: 05/25/24, XY CHEST XRAY 1 VIEW on DOS: 09/18/23, XY CHEST PORTAB LE on DOS: 02/22/23 FINDINGS: Lines and Tubes: None Lungs: No focal consolidation. Pleura: No effusion. No pneumothorax. Cardiomediastinal contours: Unremarkable Bones: No acute osseous abnormality. IMPRESSION: 1. No acute cardiopulmonary disease. 2. No significant change from 09/18/2023.
[2025-01-21] MEDS: MORPHINE SULFATE INJ 2 MG/ml SYRG IV PRN (17:51)
[2025-01-21] MEDS: HYDROcodone-ACET 5/325MG TAB PO PRN (18:33)
[2025-01-21 19:48] VITALS: BP 146/88; PULSE 78; RESP 18; TEMP 98.3; O2SAT 96
[2025-01-21 19:49] VITALS: PULSE 86; RESP 16
--- NOTE | 2025-01-21 21:24 | DVHINCON2 ---
Date of service: Jan 21, 2025 Referring Physician Gabino Reason for Consultation MS flare History of Present Illness :01/20/25 44-year-old female who came to ER for body pains. Patient has history of multiple sclerosis. Had laparoscopic surgery 5 days ago, insisted she has been having flare-up of her multiple sclerosis. Has been having shortness a breath and burning generalized body pain since then. No fever noted. Chief Complaint: Body pains Ms. Herndon is a 44 years old right-handed female with a history of hypertension, multiple sclerosis, she came to the [facility] on 01/20/25 with a chief complaint of MS exacerbation I saw on 02/22/2023 for MS flare She reports she has a history of multiple sclerosis that will be further described For many months, the patient was has brain fog, left-sided weakness, left-sided and the right hand numbness, tightness in the chest, shortness of breath, intermittent blurry vision, for three months she has intermittent shaking in the hands. Her problems are off the worse coincidentally after she had endometrial surgery on 01/16/2025 She has no recent acute illness The last MS exacerbation was in 02/2023 He was last MR brain scan was in 2023 Around her age of 23, she developed blurry vision, double vision, bilateral lower extremity numbness, weakness, and she lost the color vision, which recovered gradually. Within 4 months of time, she developed left-sided weakness and numbness. Later the patient was seen by contracting support specialist, after MRI brain with and without contrast, lumbar puncture, the patient was said to have multiple sclerosis, and that she had been on Betaseron 1 mg subcutaneously q. OD since 2004. Kesimpta caused numbness and weakness in the legs in that she could not walk Urinalysis, 01/21/2025: WBC: 1, urine leukocyte esterase: Negative WBC/HB/PLT/MCV, 01/21/2025: 5/9.8/238/80.8 BMP, 01/21/2025: Unremarkable Chest x-ray, 01/21/2025: 1. No acute cardiopulmonary disease. 2. No significant change from 09/18/2023 CT head, 02/22/2023 No acute intracranial abnormality MRI brain, 02/23/2023: 1. No acute infarct, intracranial hemorrhage, mass effect, or hydrocephalus. 2. There are a few periventricular/white matter T2/FLAIR hyperintense foci without post contrast enhancement or diffusion restriction. This is a nonspecific finding but can be seen in demyelinating disease. Clinical correlation advised Past Medical History Hypertension, multiple sclerosis Past Surgical History Ovarian tumor removal, labial tumor removal Family History: Diabetes mellitus (DM) FH: arthritis FH: hypertension FH: kidney failure Family History Hypertension, diabetes, kidney failure, arthritis Social History She was a tobacco smoker, no history of alcohol recreational substance abuse Allergies: Coded Allergies: Penicillins (Verified Allergy, Unknown, 10/04/17) Home Meds Active Scripts Methylprednisolone (Medrol Dosepak) 4 Mg Mk, 4 MG PO UD, #21 TAB UAD Prov:PANKAJ BAUMAN PAC 05/25/24 Promethazine-Dm (Promethazine Dm 6.25-15 mg/5Ml) 1 Christina Christina, 5 ML PO Q4HPRN PRN, #473 ML Prov:PANKAJ BAUMAN PAC 05/25/24 Lisinopril (Lisinopril) 40 Mg Tab, 1 TAB PO DAILY, #30 TAB 5 Refills Prov:GABINO JACINTO [employer] 02/27/23 Metoprolol Succinate (Toprol Xl) 50 Mg Tab, 25 MG PO DAILY for 30 Days, #15 TAB Prov:GABINO JACINTO [employer] 02/27/23 Cephalexin ( Keflex 500) 500 Mg Cap, 2 CAP PO BID for 7 Days, #28 CAP Prov:ZECHARIAH ANSARI DO 10/01/22 Reported Medications Lisinopril (Lisinopril) 10 Mg Tab, 1 TAB PO DAILY 01/21/25 Amlodipine Besylate (Amlodipine Besylate) 5 Mg Tab, 1 TAB PO DAILY 01/21/25 Clonazepam (Clonazepam) 1 Mg Tab, 1 TAB PO BIDPRN 02/23/23 Clonidine Hydrochloride (Clonidine Hcl) 0.1 Mg Tab, 1 TAB PO 02/23/23 Hctz (Hydrochlorothiazide) 25 Mg Tab, 1 TAB PO DAILY 02/23/23 Interferon Beta-1B (Betaseron) 0.3 Mg Inj, SC 02/23/23 Current Medications Current Medications Medications (Trade) Dose Ordered Sig/Cris Route PRN Reason Start Time Stop Time Status Last Admin Sodium Chloride 1,000 ml @ 120 mls/hr Q8H20M IV 01/21/25 08:45 01/21/25 08:45 Acetaminophen/ Hydrocodone Bitart ([place] 5/325MG Tab) 1 tab Q4HP PRN PO MODERATE PAIN (4-6 PAIN SCALE) 01/21/25 08:45 01/21/25 18:33 Ondansetron HCl (Zofran) 4 mg Q4HP PRN IV NAUSEA / VOMITING 01/21/25 08:45 Docusate Sodium (Colace Capsule) 100 mg BIDPRN PRN PO FOR CONSTIPATION 01/21/25 08:45 Enoxaparin Sodium (Lovenox) 40 mg DAILY SC 01/21/25 10:00 01/21/25 10:04 Acetaminophen (Tylenol Tablet) 650 mg Q6HP PRN PO PAIN SCALE 1-3 OR TEMP>100.4 01/21/25 08:45 Morphine Sulfate 2 mg Q4HPRN PRN IV SEVERE PAIN (7-10 PAIN SCALE) 01/21/25 08:45 01/21/25 17:51 Nitroglycerin (Ntrostat Sublingual) 0.4 mg Q5MINP PRN SL FOR CHEST PAIN 01/21/25 08:45 Morphine Sulfate 2 mg Q30M PRN IV FOR CHEST PAIN 01/21/25 08:45 Methylprednisolone Sodium Succinate (Solu Medrol) 1,000 mg DAILY IV 01/21/25 10:00 01/24/25 09:59 Amlodipine Besylate (Norvasc Tablet) 5 mg DAILY PO 01/21/25 10:00 01/21/25 10:04 Lisinopril (Zestril Tablet) 10 mg DAILY PO 01/21/25 10:00 01/21/25 10:05 Pantoprazole Sodium (Protonix Tablet) 40 mg DAILY PO 01/21/25 10:00 01/21/25 10:05 Review of Systems As above, the other systems are negative Vital Signs Vital Signs Date Time Temp Pulse Resp B/P (MAP) Pulse Ox O2 Delivery O2 Flow Rate FiO2 01/21/25 19:49 86 16 Room Air* 0 21 01/21/25 19:48 98.3 146/88 (107) 96 98.3 Physical Exam GENERAL EXAM: General: the patient is well developed and nourished. No acute distress. HEENT: Normocephalic, neck is supple, no carotid bruits. No mass. RESPIRATORY: Normal respiratory effort with symmetrical lung expansion. Lungs clear to auscultation. CARDIOVASCULAR: Regular rate and rhythm with no murmurs. S1, S2. ABDOMEN: Soft, nontender, normal bowel sound NEUROLOGICAL: MENTAL STATUS: Awake and alert. Oriented to person, place, time and general circumstances. Able to give personal history SPEECH, LANGUAGE, HIGHER CORTICAL FUNCTION: no aphasia or dysathria. CRANIAL NERVES: #2: Intact visual nino to confrontation. The optic discs were sharp. #3,4,6: Pupils are equal, round and reactive. EOMs full and conjugate reports pain in the left eye when she moves them. No nystagmus. #5: Facial sensation intact is diminished in the left face. Mandibular strength intact. #7: Facial muscles symmetrical and strength intact. #8: Hearing grossly normal to voice. #9,10: Uvula and soft palate rise in the midline. Swallow and voice are normal. #11: Trapezius and sternomastoid strength intact bilaterally. #12: Tongue midline. No fasciculations or atrophy. SENSATION: Sensation to touch and pinprick is diminished in the left extremities MOTOR: Normal tone in the upper and lower extremity. Normal muscle bulk. No fasciculations. No abnormal movements or posturing. Muscle strength of the major groups in the right extremities is 5/5. Muscle strength of the major groups in the left extremities is 5/5. REFLEXES: Deep tendon reflexes normal and symmetrical. No pathological reflexes. CEREBELLAR/COORDINATION: Finger to nose is unremarkable GAIT/STATION: Unremarkable Labs/Diagnostic Data Labs Test 01/21/25 04:16 01/21/25 00:23 Range/Units Urine Color Light-yellow Yellow Urine Clarity Clear Clear Urine pH 6.5 5.0-9.0 Urine Specific Boring 1.027 1.001-1.035 Urine Protein Negative Negative Urine Ketones Negative Negative Urine Blood Trace H Negative /uL Urine Nitrite Negative Negative Urine Bilirubin Negative Negative Urine Urobilinogen Normal Negative mg/dL Urine Leukocyte Esterase Negative Negative /uL Urine RBC 1 0 - 4 /hpf Urine Microscopic WBC 1 0-5 /HPF Urine Squamous Epithelial Cells Few <5 /hpf Urine Bacteria None seen None Seen /hpf Urine Mucus Few None Seen Urine Glucose Normal Normal mg/dL White Blood Count 5.0 4.4-10.8 10^3/uL Red Blood Count 3.76 L 4.0-5.20 10^6/uL Hemoglobin 9.8 L 12.2-16.2 g/dL Hematocrit 30.4 L 36.0-46.0 % Mean Corpuscular Volume 80.8 80.0-100.0 fL Mean Corpuscular Hemoglobin 26.0 L 28.0-32.0 pg Mean Corpuscular Hemoglobin Concent 32.2 32.0-36.0 g/dL Red Cell Distribution Width 18.7 H 11.8-14.3 % Platelet Count 238 140-450 10^3/uL Mean Platelet Volume 7.3 6.9-10.8 fL Neutrophils (%) (Auto) 66.8 37.0-80.0 % Lymphocytes (%) (Auto) 22.5 10.0-50.0 % Monocytes (%) (Auto) 9.1 0.0-12.0 % Eosinophils (%) (Auto) 0.8 0.0-7.0 % Basophils (%) (Auto) 0.8 0.0-2.0 % Neutrophils # (Auto) 3.4 1.6-8.6 10 ^3/uL Lymphocytes # (Auto) 1.1 0.4-5.4 10 ^3/uL Monocytes # (Auto) 0.5 0-1.3 10 ^3/uL Eosinophils # (Auto) 0 0-0.8 10 ^3/uL Basophils # (Auto) 0 0-0.2 10 ^3/uL Nucleated Red Blood Cells 0.1 % Sodium Level 140 136-145 mmol/L Potassium Level 3.5 3.5-5.1 mmol/L Chloride Level 103 98-107 mmol/L Carbon Dioxide Level 28 20-31 mmol/L Anion Gap 9 5-15 Blood Urea Nitrogen 20 9-23 mg/dL Creatinine 0.88 0.550-1.02 mg/dL Glomerular Filtration Rate Calc 84 >90 mL/min BUN/Creatinine Ratio 22.7 H 10.0-20.0 Serum Glucose 91 74-106 mg/dL Calcium Level 9.2 8.7-10.4 mg/dL Assessment Multiple sclerosis Left-sided paresthesia weakness, to rule out MS exacerbation Plan/Recommendation Monitoring Supportive treatment MRI head wwo MRI CSP wwo MRI TSP wwo IV Solu-Medrol 1000mg IV daily followed by Medrol Dosepak (see the prescription) GI prophylaxis Prognosis: Poor This medical document was created using an electronic medical record system with [employer] computerized dictation system. Although this document has been carefully reviewed, there may still be some phonetic and typographical errors. These areas are purely typographical due to imperfections of the software programs, and do not reflect any compromise in the patient's medical care. Plan discussed with: Patient, Other GWENDOLYN CRISOSTOMO MD Jan 21, 2025 21:24
[2025-01-21] MEDS: ACETAMINOPHEN 325 MG TAB PO PRN (22:02)
[2025-01-21] MEDS: DOCUSATE SOD 100 MG CAP PO PRN (22:36)
[2025-01-21] MEDS ORDERED: LORazepam 2MG/ML-1ML VIAL IV PRN (22:45)
[2025-01-22] VITALS (7 sets, daily range): BP systolic 138–155; BP diastolic 85–95; PULSE 69–86; RESP 16–20; TEMP 97.6–98.7; O2SAT 70–99
[2025-01-22] MEDS: PANTOPRAZOLE 40 MG TAB PO SCH (04:57)
[2025-01-22 07:48] LABS: Basophils # (auto) 0 10 ^3/uL (0-0.2); Basophils % (auto) 0.1 % (0.0-2.0); Eosinophils # (auto) 0 10 ^3/uL (0-0.8); Lymphocytes # (auto) 0.9 10 ^3/uL (0.4-5.4)
[2025-01-22 07:52] LABS: Hematocrit 30.8 % (36.0-46.0); Lymphocytes % (auto) 5.8 % (10.0-50.0); Mean Corpuscular Hemoglobin 25.7 pg (28.0-32.0); Mean Corpuscular Hgb Conc. 32.3 g/dL (32.0-36.0); Mean Corpuscular Volume 79.5 fL (80.0-100.0); Monocytes # (auto) 1.2 10 ^3/uL (0-1.3); Monocytes % (auto) 7.7 % (0.0-12.0); Neutrophils % (auto) 86.4 % (37.0-80.0); Platelet Count (auto) 260 10^3/uL (140-450); Red Blood Cells 3.88 10^6/uL (4.0-5.20); Red Cell Distribution Width 18.6 % (11.8-14.3); White Blood Cell 15.1 10^3/uL (4.4-10.8)
--- NOTE | 2025-01-22 07:53 | DVHPN2 ---
Progress Note - Dictate Date Seen: Jan 22, 2025 Medical Necessity Reason Pt with a Central, PICC or Fol: No vital signs Vital Sign Date Time Temp Pulse Resp B/P (MAP) Pulse Ox O2 Delivery O2 Flow Rate FiO2 01/22/25 05:00 97.6 70 19 155/87 (109) 70 97.6 01/21/25 23:27 Room Air* 0 21 Total Intake and Output 01/21/25 01/21/25 01/22/25 15:00 23:00 07:00 Intake Total 1450 ml 240 ml Output Total 650 ml Balance 800 ml 240 ml medications Current Medications Medications Dose Ordered Sig/Cris Route Start Time Stop Time Status Last Admin Dose Admin Sodium Chloride 1,000 ml @ 120 mls/hr Q8H20M IV 01/21/25 08:45 01/22/25 04:58 120 MLS/HR Acetaminophen/ Hydrocodone Bitart 1 tab Q4HP PRN PO 01/21/25 08:45 01/22/25 05:16 1 TAB Ondansetron HCl 4 mg Q4HP PRN IV 01/21/25 08:45 Docusate Sodium 100 mg BIDPRN PRN PO 01/21/25 08:45 01/21/25 22:36 100 MG Enoxaparin Sodium 40 mg DAILY SC 01/21/25 10:00 01/21/25 10:04 40 MG Acetaminophen 650 mg Q6HP PRN PO 01/21/25 08:45 01/21/25 22:02 650 MG Morphine Sulfate 2 mg Q4HPRN PRN IV 01/21/25 08:45 01/21/25 17:51 2 MG Nitroglycerin 0.4 mg Q5MINP PRN SL 01/21/25 08:45 Morphine Sulfate 2 mg Q30M PRN IV 01/21/25 08:45 Methylprednisolone Sodium Succinate 1,000 mg DAILY IV 01/21/25 10:00 01/24/25 09:59 Amlodipine Besylate 5 mg DAILY PO 01/21/25 10:00 01/21/25 10:04 5 MG Lisinopril 10 mg DAILY PO 01/21/25 10:00 01/21/25 10:05 10 MG Pantoprazole Sodium 40 mg DAILY PO 01/21/25 10:00 01/21/25 10:05 40 MG Lorazepam 1 mg ONCE PRN IV 01/21/25 22:45 Methylprednisolone Sodium Succinate 1000 mg/Sodium Chloride 250 ml @ 300 mls/hr Q24H IV 01/22/25 23:00 Pantoprazole Sodium 40 mg DAILY@0600 PO 01/22/25 06:00 objective General Appearance: alert, no distress HEENT: EOMI, PERRLA, normal external inspect of ears, no icterus, no nasal drainage Neck: no carotid bruit, no jugular venous distention (JVD), no lymphadenopathy Chest: normal thorax Respiratory: clear to auscultation, normal air movement Cardiovascular: regular rate and rhythm, no diastolic murmur, no jugular venous distention (JVD), no rub, no systolic murmur Abdominal: soft, no hepatomegaly, no mass, no splenomegaly, no tenderness Genitourinary: grossly normal external Musculoskeletal: no joint tenderness, no swelling Extremities: normal pulses, no calf tenderness, no clubbing, no cyanosis, no edema Skin: no bruising, no jaundice, no rash Neurological: alert, No focal deficit laboratory and microbiology Test 01/22/25 06:17 Range/Units Serum Glucose Pending Problem List 1. MS flare Monitor, neurology consult, MRI brain, MRI spine, IV solumedrol 2. HTN Monitor, antihypertensives, DVT prophylaxis , PPI Assessment/Plan Subjective: Patient is awake and alert. Intact with the patient and family at bedside. Objective: Patient was admitted for possible MS flare. Patient with a history of hypertension. No infectious process has been found. Plan: Continue 1000 mg IV Solu-Medrol for MS flare. Neurology recommendations appreciated. Will plan to taper steroids outpatient. Plan discussed with: Patient, Other GABINO JACINTO NP Jan 22, 2025 07:53
[2025-01-22 08:05] LABS: Alanine Aminotransferase 13 U/L (7-40); Albumin 3.9 g/dL (3.2-4.8); Alkaline Phosphatase 70 U/L (46-116); Anion Gap 10 (5-15); Aspartate Aminotransferase 14 U/L (13-40); BUN/Creatinine Ratio 17.9 (10.0-20.0); Blood Urea Nitrogen 12 mg/dL (9-23); Carbon Dioxide 22 mmol/L (20-31); Chloride 107 mmol/L (98-107); Glucose 103 mg/dL (74-106); Potassium 3.8 mmol/L (3.5-5.1); Sodium 139 mmol/L (136-145); Total Protein 6.3 g/dL (5.7-8.2)
[2025-01-22 08:11] LABS: Bilirubin, Total 0.2 mg/dL (0.2-1.0)
--- NOTE | 2025-01-22 13:49 | DVH ---
MR thoracic spine without contrast HISTORY: MS FINDINGS: Thoracic vertebral bodies are normal in height and alignment. Slight disc space narrowing in the lower 2 thoracic disc spaces. No disc herniation. Thoracic cord normal in size and signal intensity ending at T12. No paravertebral soft tissue masses are present IMPRESSION: 1. No evidence of MS plaque or myelopathy on this exam. No evidence of cord compression
--- NOTE | 2025-01-22 14:04 | DVH ---
MR cervical spine without and with contrast HISTORY: MS TECHNIQUE: MR was performed with a surface coil at 1.5 T magnet. Sagittal, axial and coronal T1 and T 2-weighted images were obtained. Following IV administration of 10 cc of Dotarem postcontrast images were obtained FINDINGS: On noncontrast images the cervical vertebral bodies are normal in height signal intensity a nd alignment The cervical cord is normal in size and signal intensity. On transaxial images there are diffuse bulges of the C4-5 and C5-6 discs effacing the thecal sac but causing no cord or nerve root compression. No abnormal paravertebral soft tissue masses On postcontrast images no areas of abnormal enhancement IMPRESSION: 1. No evidence of myelopathy on this exam. 2. At C4-5 and C5-6 there are broad-based disc bulges effacing the thecal sac but not causing cord co mpression. Bulging disc at C5-6 is roughly 3 mm and to the left of midline
[2025-01-22] MEDS: GADOTERATE MEG 10 MMOL/20ml INJ (0.5MMOL/ml) IV ONE (17:31)
[2025-01-22] MEDS: LORazepam 2MG/ML-1ML VIAL IV PRN (22:13)
[2025-01-22] MEDS: methylPREDNISolone SOD SUCC 1,000 MG in SODIUM CHL 0.9% 250 ML IV SCH (22:34)
--- NOTE | 2025-01-22 23:22 | DVHPN2 ---
Progress Note - Dictate Date Seen: Jan 22, 2025 Medical Necessity Reason Pt with a Central, PICC or Fol: No Subjective Ms. Yanick is a 44 years old right-handed female with a history of hypertension, multiple sclerosis, she came to the [facility] on 01[facility]20[facility]25 with a chief complaint of MS exacerbation I saw on 02/22/2023 for MS flare I have seen examined the patient, I have talked to her nurse, she was doing fine, no new problems MR T-spine, C-spine she was no evidence of MS Urinalysis, 01/21/2025: WBC: 1, urine leukocyte esterase: Negative WBC/HB/PLT/MCV, 01/21/2025: 5/9.8/238/80.8 BMP, 01/21/2025: Unremarkable Chest x-ray, 01/21/2025: 1. No acute cardiopulmonary disease. 2. No significant change from 09/18/2023 CT head, 02/22/2023 No acute intracranial abnormality MRI brain, 02/23/2023: 1. No acute infarct, intracranial hemorrhage, mass effect, or hydrocephalus. 2. There are a few periventricular/white matter T2/FLAIR hyperintense foci without post contrast enhancement or diffusion restriction. This is a nonspecific finding but can be seen in demyelinating disease. Clinical correlation advised MRI C-spine, 01/22/2025:No evidence of MS plaque or myelopathy on this exam. No evidence of cord compression MRI T-spine, 01/22/2025: No evidence of MS plaque or myelopathy on this exam. No evidence of cord compression vital signs Vital Sign Date Time Temp Pulse Resp B/P (MAP) Pulse Ox O2 Delivery O2 Flow Rate FiO2 01/22/25 20:47 98.2 82 16 138/85 (102) 99 98.2 01/22/25 08:00 Room Air* 0 21 Total Intake and Output 01/21/25 01/21/25 01/22/25 15:00 23:00 07:00 Intake Total 1450 ml 240 ml Output Total 650 ml Balance 800 ml 240 ml medications Current Medications Medications Dose Ordered Sig/Cris Route Start Time Stop Time Status Last Admin Dose Admin Sodium Chloride 1,000 ml @ 120 mls/hr Q8H20M IV 01/21/25 08:45 01/22/25 04:58 120 MLS/HR Acetaminophen/ Hydrocodone Bitart 1 tab Q4HP PRN PO 01/21/25 08:45 01/22/25 16:11 1 TAB Ondansetron HCl 4 mg Q4HP PRN IV 01/21/25 08:45 Docusate Sodium 100 mg BIDPRN PRN PO 01/21/25 08:45 01/21/25 22:36 100 MG Enoxaparin Sodium 40 mg DAILY SC 01/21/25 10:00 01/22/25 09:47 40 MG Acetaminophen 650 mg Q6HP PRN PO 01/21/25 08:45 01/21/25 22:02 650 MG Morphine Sulfate 2 mg Q4HPRN PRN IV 01/21/25 08:45 01/21/25 17:51 2 MG Nitroglycerin 0.4 mg Q5MINP PRN SL 01/21/25 08:45 Morphine Sulfate 2 mg Q30M PRN IV 01/21/25 08:45 Amlodipine Besylate 5 mg DAILY PO 01/21/25 10:00 01/21/25 10:04 5 MG Lisinopril 10 mg DAILY PO 01/21/25 10:00 01/22/25 09:47 10 MG Pantoprazole Sodium 40 mg DAILY PO 01/21/25 10:00 01/22/25 09:46 40 MG Lorazepam 1 mg ONCE PRN IV 01/21/25 22:45 Methylprednisolone Sodium Succinate 1000 mg/Sodium Chloride 250 ml @ 300 mls/hr Q24H IV 01/22/25 23:00 01/22/25 22:34 300 MLS/HR Pantoprazole Sodium 40 mg DAILY@0600 PO 01/22/25 06:00 Lorazepam 0.5 mg Q6HP PRN IV 01/22/25 21:15 01/22/25 22:13 0.5 MG objective General: the patient is well developed and nourished. No acute distress. MENTAL STATUS: Awake and alert. Oriented to person, place, time and general circumstances. Able to give personal history SPEECH, LANGUAGE, HIGHER CORTICAL FUNCTION: no aphasia or dysathria. CRANIAL NERVES: Pupils are equal, round and reactive. EOMs full and conjugate reports pain in the left eye when she moves them. No nystagmus. Facial sensation intact is diminished in the left face. Mandibular strength intact. Facial muscles symmetrical and strength intact. SENSATION: Sensation to touch and pinprick is diminished in the left extremities MOTOR: Normal tone in the upper and lower extremity. Normal muscle bulk. No fasciculations. No abnormal movements or posturing. Muscle strength of the major groups in the extremities is 5/5. REFLEXES: Deep tendon reflexes normal and symmetrical. No pathological reflexes. CEREBELLAR/COORDINATION: Finger to nose is unremarkable GAIT/STATION: Unremarkable laboratory and microbiology Laboratory Tests 01/22/25 06:17 Test 01/22/25 06:17 Range/Units Serum Glucose 103 74-106 mg/dL Problem List ? Multiple sclerosis Left-sided paresthesia weakness, to rule out MS exacerbation Assessment/Plan Monitoring Supportive treatment MRI head wwo IV Solu-Medrol 1000mg IV daily followed by Medrol Dosepak GI prophylaxis This medical document was created using an electronic medical record system with [employer] dictation system. Although this document has been carefully reviewed, there may still be some phonetic and typographical errors. These a Prognosis poor Plan discussed with: Patient, Other GWENDOLYN CRISOSTOMO MD Jan 22, 2025 23:22
[2025-01-23] VITALS (7 sets, daily range): BP systolic 134–166; BP diastolic 76–101; PULSE 65–108; RESP 16–18; TEMP 97.9–98.3; O2SAT 95–100
[2025-01-23] MEDS: LISINOPRIL 20 MG TAB PO SCH (09:29)
--- NOTE | 2025-01-23 09:43 | DVHPN2 ---
Progress Note - Dictate Date Seen: Jan 23, 2025 Medical Necessity Reason Pt with a Central, PICC or Fol: No vital signs Vital Sign Date Time Temp Pulse Resp B/P (MAP) Pulse Ox O2 Delivery O2 Flow Rate FiO2 01/23/25 09:30 65 18 166/96 01/23/25 09:00 97.9 98 97.9 01/23/25 08:00 Room Air* 0 21 Total Intake and Output 01/22/25 01/22/25 01/23/25 15:00 23:00 07:00 Intake Total 538 ml 1840 ml Balance 538 ml 1840 ml medications Current Medications Medications Dose Ordered Sig/Cris Route Start Time Stop Time Status Last Admin Dose Admin Sodium Chloride 1,000 ml @ 120 mls/hr Q8H20M IV 01/21/25 08:45 01/23/25 03:22 120 MLS/HR Acetaminophen/ Hydrocodone Bitart 1 tab Q4HP PRN PO 01/21/25 08:45 01/22/25 16:11 1 TAB Ondansetron HCl 4 mg Q4HP PRN IV 01/21/25 08:45 Docusate Sodium 100 mg BIDPRN PRN PO 01/21/25 08:45 01/21/25 22:36 100 MG Enoxaparin Sodium 40 mg DAILY SC 01/21/25 10:00 01/23/25 09:29 40 MG Acetaminophen 650 mg Q6HP PRN PO 01/21/25 08:45 01/21/25 22:02 650 MG Morphine Sulfate 2 mg Q4HPRN PRN IV 01/21/25 08:45 01/23/25 09:30 2 MG Nitroglycerin 0.4 mg Q5MINP PRN SL 01/21/25 08:45 Morphine Sulfate 2 mg Q30M PRN IV 01/21/25 08:45 Amlodipine Besylate 5 mg DAILY PO 01/21/25 10:00 01/23/25 09:28 5 MG Pantoprazole Sodium 40 mg DAILY PO 01/21/25 10:00 01/23/25 09:28 40 MG Lorazepam 1 mg ONCE PRN IV 01/21/25 22:45 Methylprednisolone Sodium Succinate 1000 mg/Sodium Chloride 250 ml @ 300 mls/hr Q24H IV 01/22/25 23:00 01/22/25 22:34 300 MLS/HR Pantoprazole Sodium 40 mg DAILY@0600 PO 01/22/25 06:00 01/23/25 05:28 40 MG Lorazepam 0.5 mg Q6HP PRN IV 01/22/25 21:15 01/23/25 05:28 0.5 MG Lisinopril 40 mg DAILY PO 01/23/25 10:00 01/23/25 09:29 40 MG objective General Appearance: alert, no distress HEENT: EOMI, PERRLA, normal external inspect of ears, no icterus, no nasal drainage Neck: no carotid bruit, no jugular venous distention (JVD), no lymphadenopathy Chest: normal thorax Respiratory: clear to auscultation, normal air movement Cardiovascular: regular rate and rhythm, no diastolic murmur, no jugular venous distention (JVD), no rub, no systolic murmur Abdominal: soft, no hepatomegaly, no mass, no splenomegaly, no tenderness Genitourinary: grossly normal external Musculoskeletal: no joint tenderness, no swelling Extremities: normal pulses, no calf tenderness, no clubbing, no cyanosis, no edema Skin: no bruising, no jaundice, no rash Neurological: alert, No focal deficit laboratory and microbiology Laboratory Tests 01/22/25 06:17 Test 01/22/25 06:17 Range/Units Serum Glucose 103 74-106 mg/dL Problem List 1. MS flare Monitor, neurology consult, MRI brain, MRI spine, IV solumedrol 2. HTN Monitor, antihypertensives, DVT prophylaxis , PPI Assessment/Plan Subjective: Patient is awake and alert. Objective: Patient was admitted for MS flare. Patient has no signs of infection. Patient was seen by neurology. Patient is currently on high-dose IV steroids. Patient has elevated blood pressure most likely related to MS. Plan: Increase lisinopril to 40 mg daily. Monitor vitals. Continue treatment for possible MS flare. Plan discussed with: Patient, Other GABINO JACINTO NP Jan 23, 2025 09:43
[2025-01-23] MEDS: cloNIDine HCL 0.1 MG TAB PO PRN (22:09)
--- NOTE | 2025-01-23 22:51 | DVHPN2 ---
Progress Note - Dictate Date Seen: Jan 23, 2025 Medical Necessity Reason Pt with a Central, PICC or Fol: No Subjective MsCarisa Herndon is a 44 years old right-handed female with a history of hypertension, multiple sclerosis, she came to the [facility] on 01/20/25 with a chief complaint of MS exacerbation I saw on 02/22/2023 for MS flare I have seen examined the patient, I have talked to her nurse, she reports doing better today. She believes he has all the symptoms of MS and she thinks he has MS Urinalysis, 01/21/2025: WBC: 1, urine leukocyte esterase: Negative WBC/HB/PLT/MCV, 01/21/2025: 5/9.8/238/80.8 BMP, 01/21/2025: Unremarkable Chest x-ray, 01/21/2025: 1. No acute cardiopulmonary disease. 2. No significant change from 09/18/2023 CT head, 02/22/2023 No acute intracranial abnormality MRI brain, 02/23/2023: 1. No acute infarct, intracranial hemorrhage, mass effect, or hydrocephalus. 2. There are a few periventricular/white matter T2/FLAIR hyperintense foci without post contrast enhancement or diffusion restriction. This is a nonspecific finding but can be seen in demyelinating disease. Clinical correlation advised MRI C-spine, 01/22/2025:No evidence of MS plaque or myelopathy on this exam. No evidence of cord compression MRI T-spine, 01/22/2025: No evidence of MS plaque or myelopathy on this exam. No evidence of cord compression vital signs Vital Sign Date Time Temp Pulse Resp B/P (MAP) Pulse Ox O2 Delivery O2 Flow Rate FiO2 01/23/25 22:10 92 16 150/106 01/23/25 21:00 98.2 100 98.2 01/23/25 08:00 Room Air* 0 21 Total Intake and Output 01/22/25 01/22/25 01/23/25 15:00 23:00 07:00 Intake Total 538 ml 1840 ml Balance 538 ml 1840 ml medications Current Medications Medications Dose Ordered Sig/Cris Route Start Time Stop Time Status Last Admin Dose Admin Sodium Chloride 1,000 ml @ 120 mls/hr Q8H20M IV 01/21/25 08:45 01/23/25 14:12 120 MLS/HR Acetaminophen/ Hydrocodone Bitart 1 tab Q4HP PRN PO 01/21/25 08:45 01/22/25 16:11 1 TAB Ondansetron HCl 4 mg Q4HP PRN IV 01/21/25 08:45 Docusate Sodium 100 mg BIDPRN PRN PO 01/21/25 08:45 01/21/25 22:36 100 MG Enoxaparin Sodium 40 mg DAILY SC 01/21/25 10:00 01/23/25 09:29 40 MG Acetaminophen 650 mg Q6HP PRN PO 01/21/25 08:45 01/21/25 22:02 650 MG Morphine Sulfate 2 mg Q4HPRN PRN IV 01/21/25 08:45 01/23/25 22:10 2 MG Nitroglycerin 0.4 mg Q5MINP PRN SL 01/21/25 08:45 Morphine Sulfate 2 mg Q30M PRN IV 01/21/25 08:45 Amlodipine Besylate 5 mg DAILY PO 01/21/25 10:00 01/23/25 09:28 5 MG Pantoprazole Sodium 40 mg DAILY PO 01/21/25 10:00 01/23/25 09:28 40 MG Lorazepam 1 mg ONCE PRN IV 01/21/25 22:45 Methylprednisolone Sodium Succinate 1000 mg/Sodium Chloride 250 ml @ 300 mls/hr Q24H IV 01/22/25 23:00 01/22/25 22:34 300 MLS/HR Pantoprazole Sodium 40 mg DAILY@0600 PO 01/22/25 06:00 01/23/25 05:28 40 MG Lorazepam 0.5 mg Q6HP PRN IV 01/22/25 21:15 01/23/25 22:12 0.5 MG Lisinopril 40 mg DAILY PO 01/23/25 10:00 01/23/25 09:29 40 MG Clonidine HCl 0.2 mg Q8HPRN PRN PO 01/23/25 20:15 01/23/25 22:09 0.2 MG objective General: the patient is well developed and nourished. No acute distress. MENTAL STATUS: Awake and alert. Oriented to person, place, time and general circumstances. Able to give personal history SPEECH, LANGUAGE, HIGHER CORTICAL FUNCTION: no aphasia or dysathria. CRANIAL NERVES: Pupils are equal, round and reactive. EOMs full and conjugate reports pain in the left eye when she moves them. No nystagmus. Facial sensation intact is diminished in the left face. Mandibular strength intact. Facial muscles symmetrical and strength intact. SENSATION: Sensation to touch and pinprick is diminished in the left extremities MOTOR: Normal tone in the upper and lower extremity. Normal muscle bulk. No fasciculations. No abnormal movements or posturing. Muscle strength of the major groups in the extremities is 5/5. REFLEXES: Deep tendon reflexes normal and symmetrical. No pathological reflexes. CEREBELLAR/COORDINATION: Finger to nose is unremarkable GAIT/STATION: Unremarkable laboratory and microbiology Laboratory Tests 01/22/25 06:17 Test 01/22/25 06:17 Range/Units Serum Glucose 103 74-106 mg/dL Problem List ? Multiple sclerosis Left-sided paresthesia weakness, to rule out MS exacerbation Assessment/Plan Monitoring Supportive treatment MRI head wwo IV Solu-Medrol 1000mg IV daily followed by Medrol Dosepak GI prophylaxis This medical document was created using an electronic medical record system with [employer] dictation system. Although this document has been carefully reviewed, there may still be some phonetic and typographical errors. These a Prognosis poor Plan discussed with: Patient, Other GWENDOLYN CRISOSTOMO MD Jan 23, 2025 22:51
[2025-01-24] VITALS (8 sets, daily range): BP systolic 135–169; BP diastolic 85–101; PULSE 59–110; RESP 15–18; TEMP 97.6–98.1; O2SAT 96–99
[2025-01-24] MEDS: hydrALAZINE HCL 20 MG/ML VL IV PRN (04:31)
--- NOTE | 2025-01-24 11:55 | DVH ---
MRI BRAIN WITH CONTRAST CLINICAL HISTORY: MS TECHNIQUE: Multiplanar multisequence images of the brain were obtained prior to and following intravenous admini stration of contrast. Comparison: MRI BRAIN HEAD WO W CONTRAST on DOS: 02/23/23 FINDINGS: There is no restricted diffusion. There are stable appearing scattered small hyperintense T2/FLAIR fo ci in the bilateral periventricular white matter. There is no new parenchymal signal abnormality. The re is no pathologic enhancement. There is no evidence of hemorrhage, mass, mass effect or midline sumit ft. There is no hydrocephalus or extra-axial fluid collection. The visualized intracranial vasculatur e demonstrates appropriate flow-voids. The midline structures appear unremarkable. The craniocervical junction is within normal limits. The calvarium demonstrates normal marrow signal. The paranasal sin uses and mastoid air cells are clear. IMPRESSION: 1. There is no acute intracranial process. 2. Stable appearing scattered small hyperintense T2/FLAIR foci in the bilateral periventricular white matter. Demyelinating plaques in the appropriate clinical setting are not excluded. Clinical correla tion is recommended. HS:Y
[2025-01-24] MEDS ORDERED: METH4PAK PO (13:46)
[2025-01-24] MEDS ORDERED: CLON0.1T PO (13:46)
--- NOTE | 2025-01-24 13:54 | DVHDS2 ---
Discharge Summary Date of Admission Jan 21, 2025 at 08:38 Date of Discharge: Jan 24, 2025 Labs/Diagnostic Data: Laboratory Results Test 01/22/25 06:17 01/21/25 04:16 White Blood Count 15.1 10^3/uL (4.4-10.8) Red Blood Count 3.88 10^6/uL (4.0-5.20) Hemoglobin 10.0 g/dL (12.2-16.2) Hematocrit 30.8 % (36.0-46.0) Mean Corpuscular Volume 79.5 fL (80.0-100.0) Mean Corpuscular Hemoglobin 25.7 pg (28.0-32.0) Mean Corpuscular Hemoglobin Concent 32.3 g/dL (32.0-36.0) Red Cell Distribution Width 18.6 % (11.8-14.3) Platelet Count 260 10^3/uL (140-450) Mean Platelet Volume 8.1 fL (6.9-10.8) Neutrophils (%) (Auto) 86.4 % (37.0-80.0) Lymphocytes (%) (Auto) 5.8 % (10.0-50.0) Monocytes (%) (Auto) 7.7 % (0.0-12.0) Eosinophils (%) (Auto) 0.0 % (0.0-7.0) Basophils (%) (Auto) 0.1 % (0.0-2.0) Neutrophils # (Auto) 13.0 10 ^3/uL (1.6-8.6) Lymphocytes # (Auto) 0.9 10 ^3/uL (0.4-5.4) Monocytes # (Auto) 1.2 10 ^3/uL (0-1.3) Eosinophils # (Auto) 0 10 ^3/uL (0-0.8) Basophils # (Auto) 0 10 ^3/uL (0-0.2) Nucleated Red Blood Cells 0.0 % Sodium Level 139 mmol/L (136-145) Potassium Level 3.8 mmol/L (3.5-5.1) Chloride Level 107 mmol/L (98-107) Carbon Dioxide Level 22 mmol/L (20-31) Anion Gap 10 (5-15) Blood Urea Nitrogen 12 mg/dL (9-23) Creatinine 0.67 mg/dL (0.550-1.02) Glomerular Filtration Rate Calc 111 mL/min (>90) BUN/Creatinine Ratio 17.9 (10.0-20.0) Serum Glucose 103 mg/dL (74-106) Calcium Level 9.0 mg/dL (8.7-10.4) Total Bilirubin 0.2 mg/dL (0.2-1.0) Aspartate Amino Transferase (AST) 14 U/L (13-40) Alanine Aminotransferase (ALT) 13 U/L (7-40) Alkaline Phosphatase 70 U/L (46-116) Total Protein 6.3 g/dL (5.7-8.2) Albumin 3.9 g/dL (3.2-4.8) Urine Color Light-yellow (Yellow) Urine Clarity Clear (Clear) Urine pH 6.5 (5.0-9.0) Urine Specific [place] 1.027 (1.001-1.035) Urine Protein Negative (Negative) Urine Ketones Negative (Negative) Urine Blood Trace /uL (Negative) Urine Nitrite Negative (Negative) Urine Bilirubin Negative (Negative) Urine Urobilinogen Normal mg/dL (Negative) Urine Leukocyte Esterase Negative /uL (Negative) Urine RBC 1 /hpf (0 - 4) Urine Microscopic WBC 1 /HPF (0-5) Urine Squamous Epithelial Cells Few /hpf (<5) Urine Bacteria None seen /hpf (None Seen) Urine Mucus Few (None Seen) Urine Glucose Normal mg/dL (Normal) Other Laboratory Tests 01/22/25 06:17 Final Diagnosis/Problems List MS pollo Reece zaira taper Please follow up with Dr. Villalta for further testing with MS Discharge Disposition: Home Discharge Instruct/Medications Diet: Cardiac 2g Na,low cholest Activity: No Restrictions, As Tolerated Follow Up/Referral: pcp 1 week Discharge Statement: "Patient was advised to return to the ER or call 911 if any headaches, dizziness, shortness of breath, chest pain, abdominal pain, bleeding, fevers, or worsening of medical condition. Patient was counseled about treatment plan, medications, possible side effects, patientverbalized understanding. All questions were answered to the best of my ability. This discharge took greater then 30 minutes in planning, reviewing documentation, counseling the patient, and discussing with other team members." ASSESSMENT ASSESSMENT Assessment MS pollo Medrol zaira taper Please follow up with Dr. Villalta for further testing with GABINO CHRISTIANSON M EDGE ROLLER Jan 24, 2025 13:54
--- NOTE | 2025-01-24 14:30 | DVHPN2 ---
Progress Note - Dictate Date Seen: Jan 24, 2025 Medical Necessity Reason Pt with a Central, PICC or Fol: No vital signs Vital Sign Date Time Temp Pulse Resp B/P (MAP) Pulse Ox O2 Delivery O2 Flow Rate FiO2 01/24/25 13:00 97.6 91 18 147/95 (112) 99 97.6 01/23/25 20:00 Room Air* 0 21 Total Intake and Output 01/23/25 01/23/25 01/24/25 15:00 23:00 07:00 Intake Total 700 ml 1630 ml 1170 ml Balance 700 ml 1630 ml 1170 ml medications Current Medications Medications Dose Ordered Sig/Cris Route Start Time Stop Time Status Last Admin Dose Admin Sodium Chloride 1,000 ml @ 120 mls/hr Q8H20M IV 01/21/25 08:45 01/23/25 14:12 120 MLS/HR Acetaminophen/ Hydrocodone Bitart 1 tab Q4HP PRN PO 01/21/25 08:45 01/24/25 14:02 1 TAB Ondansetron HCl 4 mg Q4HP PRN IV 01/21/25 08:45 Docusate Sodium 100 mg BIDPRN PRN PO 01/21/25 08:45 01/21/25 22:36 100 MG Enoxaparin Sodium 40 mg DAILY SC 01/21/25 10:00 01/24/25 09:53 40 MG Acetaminophen 650 mg Q6HP PRN PO 01/21/25 08:45 01/21/25 22:02 650 MG Morphine Sulfate 2 mg Q4HPRN PRN IV 01/21/25 08:45 01/24/25 09:53 2 MG Nitroglycerin 0.4 mg Q5MINP PRN SL 01/21/25 08:45 Morphine Sulfate 2 mg Q30M PRN IV 01/21/25 08:45 Amlodipine Besylate 5 mg DAILY PO 01/21/25 10:00 01/24/25 09:51 5 MG Pantoprazole Sodium 40 mg DAILY PO 01/21/25 10:00 01/24/25 09:51 40 MG Lorazepam 1 mg ONCE PRN IV 01/21/25 22:45 Methylprednisolone Sodium Succinate 1000 mg/Sodium Chloride 250 ml @ 300 mls/hr Q24H IV 01/22/25 23:00 01/23/25 23:04 300 MLS/HR Pantoprazole Sodium 40 mg DAILY@0600 PO 01/22/25 06:00 01/24/25 06:02 40 MG Lorazepam 0.5 mg Q6HP PRN IV 01/22/25 21:15 01/24/25 12:32 0.5 MG Lisinopril 40 mg DAILY PO 01/23/25 10:00 01/24/25 09:50 40 MG Clonidine HCl 0.2 mg Q8HPRN PRN PO 01/23/25 20:15 01/23/25 22:09 0.2 MG Hydralazine HCl 10 mg Q4HPRN PRN IV 01/24/25 04:15 01/24/25 04:31 10 MG objective General Appearance: alert, no distress HEENT: EOMI, PERRLA, normal external inspect of ears, no icterus, no nasal drainage Neck: no carotid bruit, no jugular venous distention (JVD), no lymphadenopathy Chest: normal thorax Respiratory: clear to auscultation, normal air movement Cardiovascular: regular rate and rhythm, no diastolic murmur, no jugular venous distention (JVD), no rub, no systolic murmur Abdominal: soft, no hepatomegaly, no mass, no splenomegaly, no tenderness Genitourinary: grossly normal external Musculoskeletal: no joint tenderness, no swelling Extremities: normal pulses, no calf tenderness, no clubbing, no cyanosis, no edema Skin: no bruising, no jaundice, no rash Neurological: alert, No focal deficit laboratory and microbiology Laboratory Tests 01/22/25 06:17 Test 01/22/25 06:17 Range/Units Serum Glucose 103 74-106 mg/dL Problem List 1. MS flare Monitor, neurology consult, MRI brain, MRI spine, IV solumedrol 2. HTN Monitor, antihypertensives, DVT prophylaxis , PPI Assessment/Plan Subjective: Patient is awake and alert. Objective: Patient was seen by neurology for MS flare. Patient received several doses of IV Valium and 100 mg daily. Patient states she has no improvement and feels like her body is inflamed. Plan: Continue IV Solu-Medrol. Patient states she is having anxiety. Ativan is not working. Please start Klonopin. I will evaluate patient in approximately 2 days. Dietary Evaluation Review Comments: Avoid Na, monitor PO intake to meet 75% of her needs Expected Outcomes/Goals: minimize multiple sclerosis episode Plan discussed with: Patient, Other GABINO JACINTO NP Jan 24, 2025 14:30
[2025-01-24] MEDS: clonazePAM 0.5 MG TAB PO PRN (20:27)
[2025-01-24] MEDS: methylPREDNISolone SOD SUCC 1,000 MG in SODIUM CHL 0.9% 250 ML IV SCH (22:48)
--- NOTE | 2025-01-24 23:22 | DVHPN2 ---
Progress Note - Dictate Date Seen: Jan 24, 2025 Medical Necessity Reason Pt with a Central, PICC or Fol: No Subjective Ms. Yanick is a 44 years old right-handed female with a history of hypertension, multiple sclerosis, she came to the [facility] on 01/20/25 with a chief complaint of MS exacerbation I saw on 02/22/2023 for MS flare I have seen examined the patient, I have talked to her nurse, she reports doing better today. She is alert and fully oriented, she may not be happy because I am not convinced that she has MS She told him that her doctor found she had spinal cord lesion before she was given Kesimpta Urinalysis, 01/21/2025: WBC: 1, urine leukocyte esterase: Negative WBC/HB/PLT/MCV, 01/21/2025: 5/9.8/238/80.8 BMP, 01/21/2025: Unremarkable Chest x-ray, 01/21/2025: 1. No acute cardiopulmonary disease. 2. No significant change from 09/18/2023 CT head, 02/22/2023 No acute intracranial abnormality MRI brain, 02/23/2023: 1. No acute infarct, intracranial hemorrhage, mass effect, or hydrocephalus. 2. There are a few periventricular/white matter T2/FLAIR hyperintense foci without post contrast enhancement or diffusion restriction. This is a nonspecific finding but can be seen in demyelinating disease. Clinical correlation advised MR head, 01/26/2025 comparison: MRI 02/23/2023: 1. There is no acute intracranial process. 2. Stable appearing scattered small hyperintense T2/FLAIR foci in the bilateral periventricular white matter. Demyelinating plaques in the appropriate clinical setting are not excluded. Clinical correlation is recommended. MRI C-spine, 01/22/2025:No evidence of MS plaque or myelopathy on this exam. No evidence of cord compression MRI T-spine, 01/22/2025: No evidence of MS plaque or myelopathy on this exam. No evidence of cord compression vital signs Vital Sign Date Time Temp Pulse Resp B/P (MAP) Pulse Ox O2 Delivery O2 Flow Rate FiO2 01/24/25 21:00 98.0 110 15 142/96 (111) 97 98.0 01/24/25 20:00 Room Air* 0 21 Total Intake and Output 01/23/25 01/23/2525 15:00 23:00 07:00 Intake Total 700 ml 1630 ml 1170 ml Balance 700 ml 1630 ml 1170 ml medications Current Medications Medications Dose Ordered Sig/Cris Route Start Time Stop Time Status Last Admin Dose Admin Sodium Chloride 1,000 ml @ 120 mls/hr Q8H20M IV 01/21/25 08:45 01/23/25 14:12 120 MLS/HR Acetaminophen/ Hydrocodone Bitart 1 tab Q4HP PRN PO 01/21/25 08:45 01/24/25 22:50 1 TAB Ondansetron HCl 4 mg Q4HP PRN IV 01/21/25 08:45 Docusate Sodium 100 mg BIDPRN PRN PO 01/21/25 08:45 01/21/25 22:36 100 MG Enoxaparin Sodium 40 mg DAILY SC 01/21/25 10:00 01/24/25 09:53 40 MG Acetaminophen 650 mg Q6HP PRN PO 01/21/25 08:45 01/21/25 22:02 650 MG Morphine Sulfate 2 mg Q4HPRN PRN IV 01/21/25 08:45 01/24/25 20:24 2 MG Nitroglycerin 0.4 mg Q5MINP PRN SL 01/21/25 08:45 Morphine Sulfate 2 mg Q30M PRN IV 01/21/25 08:45 Amlodipine Besylate 5 mg DAILY PO 01/21/25 10:00 01/24/25 09:51 5 MG Pantoprazole Sodium 40 mg DAILY PO 01/21/25 10:00 01/24/25 09:51 40 MG Lorazepam 1 mg ONCE PRN IV 01/21/25 22:45 Pantoprazole Sodium 40 mg DAILY@0600 PO 01/22/25 06:00 01/24/25 06:02 40 MG Lisinopril 40 mg DAILY PO 01/23/25 10:00 01/24/25 09:50 40 MG Clonidine HCl 0.2 mg Q8HPRN PRN PO 01/23/25 20:15 01/23/25 22:09 0.2 MG Hydralazine HCl 10 mg Q4HPRN PRN IV 01/24/25 04:15 01/24/25 04:31 10 MG Methylprednisolone Sodium Succinate 1000 mg/Sodium Chloride 250 ml @ 300 mls/hr Q24H IV 01/24/25 23:00 01/26/25 22:59 01/24/25 22:48 300 MLS/HR Clonazepam 1 mg Q8HP PRN PO 01/24/25 14:30 01/24/25 20:27 1 MG objective General: the patient is well developed and nourished. No acute distress. MENTAL STATUS: Awake and alert. Oriented to person, place, time and general circumstances. Able to give personal history SPEECH, LANGUAGE, HIGHER CORTICAL FUNCTION: no aphasia or dysathria. CRANIAL NERVES: Pupils are equal, round and reactive. EOMs full and conjugate reports pain in the left eye when she moves them. No nystagmus. Facial sensation intact is diminished in the left face. Mandibular strength intact. Facial muscles symmetrical and strength intact. SENSATION: Sensation to touch and pinprick is diminished in the left extremities MOTOR: Normal tone in the upper and lower extremity. Normal muscle bulk. No fasciculations. No abnormal movements or posturing. Muscle strength of the major groups in the extremities is 5/5. REFLEXES: Deep tendon reflexes normal and symmetrical. No pathological reflexes. CEREBELLAR/COORDINATION: Finger to nose is unremarkable GAIT/STATION: Unremarkable laboratory and microbiology Laboratory Tests 01/22/25 06:17 Test 01/22/25 06:17 Range/Units Serum Glucose 103 74-106 mg/dL Problem List ? Multiple sclerosis Left-sided paresthesia weakness, to rule out MS exacerbation Assessment/Plan Monitoring Supportive treatment IV Solu-Medrol 1000mg IV daily followed by Medrol Dosepak GI prophylaxis The case was discussed with Neda This medical document was created using an electronic medical record system with [employer] dictation system. Although this document has been carefully reviewed, there may still be some phonetic and typographical errors. These a Prognosis poor Dietary Evaluation Review Comments: Avoid Na, monitor PO intake to meet 75% of her needs Expected Outcomes/Goals: minimize multiple sclerosis episode Plan discussed with: Patient, Other GWENDOLYN CRISOSTOMO MD Jan 24, 2025 23:21
[2025-01-25] VITALS (8 sets, daily range): BP systolic 141–166; BP diastolic 71–98; PULSE 74–121; RESP 15–18; TEMP 98.1–98.7; O2SAT 96–99
--- NOTE | 2025-01-25 07:20 | DVHPN2 ---
Progress Note - Dictate Date Seen: Jan 25, 2025 Medical Necessity Reason Pt with a Central, PICC or Fol: No vital signs Vital Sign Date Time Temp Pulse Resp B/P (MAP) Pulse Ox O2 Delivery O2 Flow Rate FiO2 01/25/25 05:00 98.1 100 15 143/84 (103) 98 98.1 01/24/25 20:00 Room Air* 0 21 Total Intake and Output 01/24/25 01/24/25 01/25/25 15:00 23:00 07:00 Intake Total 875 ml 1850 ml Output Total 1100 ml Balance -225 ml 1850 ml medications Current Medications Medications Dose Ordered Sig/Cris Route Start Time Stop Time Status Last Admin Dose Admin Sodium Chloride 1,000 ml @ 120 mls/hr Q8H20M IV 01/21/25 08:45 01/23/25 14:12 120 MLS/HR Acetaminophen/ Hydrocodone Bitart 1 tab Q4HP PRN PO 01/21/25 08:45 01/24/25 22:50 1 TAB Ondansetron HCl 4 mg Q4HP PRN IV 01/21/25 08:45 Docusate Sodium 100 mg BIDPRN PRN PO 01/21/25 08:45 01/21/25 22:36 100 MG Enoxaparin Sodium 40 mg DAILY SC 01/21/25 10:00 01/24/25 09:53 40 MG Acetaminophen 650 mg Q6HP PRN PO 01/21/25 08:45 01/21/25 22:02 650 MG Morphine Sulfate 2 mg Q4HPRN PRN IV 01/21/25 08:45 01/25/25 01:59 2 MG Nitroglycerin 0.4 mg Q5MINP PRN SL 01/21/25 08:45 Morphine Sulfate 2 mg Q30M PRN IV 01/21/25 08:45 Amlodipine Besylate 5 mg DAILY PO 01/21/25 10:00 01/24/25 09:51 5 MG Pantoprazole Sodium 40 mg DAILY PO 01/21/25 10:00 01/24/25 09:51 40 MG Lorazepam 1 mg ONCE PRN IV 01/21/25 22:45 Pantoprazole Sodium 40 mg DAILY@0600 PO 01/22/25 06:00 01/25/25 06:26 40 MG Lisinopril 40 mg DAILY PO 01/23/25 10:00 01/24/25 09:50 40 MG Clonidine HCl 0.2 mg Q8HPRN PRN PO 01/23/25 20:15 01/23/25 22:09 0.2 MG Hydralazine HCl 10 mg Q4HPRN PRN IV 01/24/25 04:15 01/25/25 00:37 10 MG Methylprednisolone Sodium Succinate 1000 mg/Sodium Chloride 250 ml @ 300 mls/hr Q24H IV 01/24/25 23:00 01/26/25 22:59 01/24/25 22:48 300 MLS/HR Clonazepam 1 mg Q8HP PRN PO 01/24/25 14:30 01/24/25 20:27 1 MG objective General Appearance: alert, no distress HEENT: EOMI, PERRLA, normal external inspect of ears, no icterus, no nasal drainage Neck: no carotid bruit, no jugular venous distention (JVD), no lymphadenopathy Chest: normal thorax Respiratory: clear to auscultation, normal air movement Cardiovascular: regular rate and rhythm, no diastolic murmur, no jugular venous distention (JVD), no rub, no systolic murmur Abdominal: soft, no hepatomegaly, no mass, no splenomegaly, no tenderness Genitourinary: grossly normal external Musculoskeletal: no joint tenderness, no swelling Extremities: normal pulses, no calf tenderness, no clubbing, no cyanosis, no edema Skin: no bruising, no jaundice, no rash Neurological: alert, No focal deficit laboratory and microbiology Laboratory Tests 01/22/25 06:17 Test 01/22/25 06:17 Range/Units Serum Glucose 103 74-106 mg/dL Problem List 1. MS flare Monitor, neurology consult, MRI brain, MRI spine, IV solumedrol 2. HTN Monitor, antihypertensives, DVT prophylaxis , PPI Assessment/Plan Subjective: Patient is awake and alert. Objective: Patient appears to be doing better. Patient received her third dose of IV Solu- Medrol and her fourth dose is scheduled tonight at 11 PM. Patient states that Klonopin is working well with her anxiety. Patient is requesting some Klonopin at discharge. Patient will also need a Medrol dose taper pack. Patient will need 5 total doses of IV Solu-Medrol at 1000 mg. Patient is feeling stronger and she is feeling like there is less burning throughout her body. Plan: Continue current treatment. Plan for discharge possibly on Wednesday. Dietary Evaluation Review Comments: Avoid Na, monitor PO intake to meet 75% of her needs Expected Outcomes/Goals: minimize multiple sclerosis episode Plan discussed with: Patient, Other GABINO JACINTO NP Jan 25, 2025 07:20
[2025-01-26] VITALS (8 sets, daily range): BP systolic 136–169; BP diastolic 83–98; PULSE 67–143; RESP 16–18; TEMP 97.5–99.1; O2SAT 96–99
[2025-01-26] MEDS: ARTIFICIAL TEARS 15ml EACHEYE PRN (16:36)
[2025-01-26] MEDS: CARVEDILOL 3.125 MG TAB PO ONE (18:30)
--- NOTE | 2025-01-26 18:39 | DVHPN2 ---
Progress Note Date Seen: Jan 26, 2025 Medical Necessity Reason Pt with a Central, PICC or Fol: No Subjective Review of Systems: CVS:Normal, RESPIRATORY:Normal, NEURO:Normal Objective vital signs Vital Sign Date Time Temp Pulse Resp B/P (MAP) Pulse Ox O2 Delivery O2 Flow Rate FiO2 01/26/25 17:33 143/103 01/26/25 17:04 103 16 01/26/25 17:00 99.1 99 99.1 01/26/25 08:00 Room Air* 0 21 Total Intake and Output 01/25/25 01/25/25 01/26/25 15:00 23:00 07:00 Intake Total 700 ml 625 ml Balance 700 ml 625 ml medications Current Medications Medications Dose Ordered Sig/Cris Route Start Time Stop Time Status Last Admin Dose Admin Sodium Chloride 1,000 ml @ 120 mls/hr Q8H20M IV 01/21/25 08:45 01/26/25 13:45 120 MLS/HR Acetaminophen/ Hydrocodone Bitart 1 tab Q4HP PRN PO 01/21/25 08:45 01/26/25 12:58 1 TAB Ondansetron HCl 4 mg Q4HP PRN IV 01/21/25 08:45 Docusate Sodium 100 mg BIDPRN PRN PO 01/21/25 08:45 01/21/25 22:36 100 MG Enoxaparin Sodium 40 mg DAILY SC 01/21/25 10:00 01/26/25 11:06 40 MG Acetaminophen 650 mg Q6HP PRN PO 01/21/25 08:45 01/21/25 22:02 650 MG Morphine Sulfate 2 mg Q4HPRN PRN IV 01/21/25 08:45 01/26/25 16:34 2 MG Nitroglycerin 0.4 mg Q5MINP PRN SL 01/21/25 08:45 Morphine Sulfate 2 mg Q30M PRN IV 01/21/25 08:45 Amlodipine Besylate 5 mg DAILY PO 01/21/25 10:00 01/26/25 10:57 5 MG Lorazepam 1 mg ONCE PRN IV 01/21/25 22:45 Pantoprazole Sodium 40 mg DAILY@0600 PO 01/22/25 06:00 01/26/25 06:02 40 MG Lisinopril 40 mg DAILY PO 01/23/25 10:00 01/26/25 10:58 40 MG Clonidine HCl 0.2 mg Q8HPRN PRN PO 01/23/25 20:15 01/26/25 16:33 0.2 MG Hydralazine HCl 10 mg Q4HPRN PRN IV 01/24/25 04:15 01/25/25 00:37 10 MG Methylprednisolone Sodium Succinate 1000 mg/Sodium Chloride 250 ml @ 300 mls/hr Q24H IV 01/24/25 23:00 01/26/25 22:59 01/25/25 22:30 300 MLS/HR Clonazepam 1 mg Q8HP PRN PO 01/24/25 14:30 01/26/25 11:05 1 MG Fluticasone Propionate 50 mcg Q12HR EACHNOSTRI 01/26/25 22:00 Artificial Tears 1 drop Q6HP PRN EACHEYE 01/26/25 11:15 01/26/25 16:36 1 DROP Carvedilol 6.25 mg Q12HR PO 01/26/25 22:00 UNV Examination: GENERAL:Normal, LUNGS:Normal, CVS:Normal, ABDOMEN:Normal, SKIN:Normal, NEURO:Normal laboratory and microbiology Laboratory Tests 01/22/25 06:17 Test 01/22/25 06:17 Range/Units Serum Glucose 103 74-106 mg/dL Microbiology Date/Time Source Procedure Growth Status 01/24/25 00:00 Nose MRSA Screen - Final Complete Labs and/or images reviewed: Labs reviewed by me, Image(s) reviewed by me Problem List/Assessment/Plan Problem List/Assessment/Plan 1. MS flare Monitor, neurology consult, MRI brain, MRI spine, IV solumedrol 2. HTN Monitor, antihypertensives, DVT prophylaxis , PPI Assessment/Plan Subjective: Patient is awake and alert. Objective: Patient appears to be doing better. Patient's last dose of Solu-Medrol is tonight. Patient states that Klonopin is working well with her anxiety. Patient is requesting some Klonopin at discharge. Patient will also need a Medrol dose taper pack. Patient will need 5 total doses of IV Solu-Medrol at 1000 mg. Patient is feeling stronger and she is feeling like there is less burning throughout her body. Plan: Continue current treatment. Planned for possible discharge tomorrow Plan discussed with: Patient My Orders My Orders Orders - CYN BALLARD Procedure Category Date Status Time Fluticasone Nasal PHA 01/26/25 In Process Woodruff (Flonase Woodruff) 22:00 Artificial Tear 15ml PHA 01/26/25 In Process Opthalmic (Tears Na 11:15 Carvedilol Tablet PHA 01/26/25 Logged (Coreg Tablet) 22:00 Carvedilol Tablet PHA 01/26/25 Logged (Coreg Tablet) 18:30 Dietary Evaluation Review Comments: Avoid Na, monitor PO intake to meet 75% of her needs Expected Outcomes/Goals: minimize multiple sclerosis episode Date of Service: Jan 26, 2025 Billing Provider: TETE NAVARRO MD Common Visit Codes: [id number] INP/OBS CARE (MOD) CYN BALLARD Jan 26, 2025 18:39
[2025-01-26] MEDS: CARVEDILOL 3.125 MG TAB PO SCH (20:42)
[2025-01-26] MEDS: FLUTICASONE PROP NASAL SPR 0.05 % (50MCG) 16GM EACHNOSTRI SCH (22:00)
[2025-01-27] VITALS (8 sets, daily range): BP systolic 127–156; BP diastolic 77–96; PULSE 86–101; RESP 16–20; TEMP 98–98.7; O2SAT 96–100
[2025-01-27 09:32] LABS: Basophils # (auto) 0 10 ^3/uL (0-0.2); Basophils % (auto) 0.2 % (0.0-2.0); Eosinophils # (auto) 0 10 ^3/uL (0-0.8); Eosinophils % (auto) 0.1 % (0.0-7.0); Hemoglobin 9.3 g/dL (12.2-16.2); Lymphocytes # (auto) 1.5 10 ^3/uL (0.4-5.4); Lymphocytes % (auto) 15.2 % (10.0-50.0); Mean Corpuscular Hemoglobin 25.5 pg (28.0-32.0); Mean Corpuscular Hgb Conc. 32.1 g/dL (32.0-36.0); Mean Corpuscular Volume 79.3 fL (80.0-100.0); Monocytes # (auto) 0.7 10 ^3/uL (0-1.3); Monocytes % (auto) 7.4 % (0.0-12.0); Neutrophils # (auto) 7.5 10 ^3/uL (1.6-8.6); Neutrophils % (auto) 77.1 % (37.0-80.0); Nucleated Red Blood Cells % 0.4 %; Platelet Count (auto) 248 10^3/uL (140-450); Red Blood Cells 3.65 10^6/uL (4.0-5.20); Red Cell Distribution Width 19.5 % (11.8-14.3); White Blood Cell 9.8 10^3/uL (4.4-10.8)
[2025-01-27 09:52] LABS: Alanine Aminotransferase 18 U/L (7-40); Albumin 3.2 g/dL (3.2-4.8); Alkaline Phosphatase 53 U/L (46-116); Anion Gap 10 (5-15); Aspartate Aminotransferase 14 U/L (13-40); Blood Urea Nitrogen 26 mg/dL (9-23); Calcium 8.3 mg/dL (8.7-10.4); Carbon Dioxide 25 mmol/L (20-31); Chloride 106 mmol/L (98-107); Glucose 91 mg/dL (74-106); Potassium 3.4 mmol/L (3.5-5.1); Sodium 141 mmol/L (136-145); Total Protein 5.4 g/dL (5.7-8.2)
[2025-01-27 09:53] LABS: Bilirubin, Total 0.4 mg/dL (0.2-1.0)
[2025-01-27] MEDS: methylPREDNISolone SOD SUCC 1,000 MG in SODIUM CHL 0.9% 250 ML IV ONE (11:02)
--- NOTE | 2025-01-27 14:09 | DVHPN2 ---
Progress Note Date Seen: Jan 27, 2025 Medical Necessity Reason Pt with a Central, PICC or Fol: No Subjective Review of Systems: CVS:Normal, RESPIRATORY:Normal, GI:Normal, NEURO:Normal Objective vital signs Vital Sign Date Time Temp Pulse Resp B/P (MAP) Pulse Ox O2 Delivery O2 Flow Rate FiO2 01/27/25 09:51 90 137/87 01/27/25 09:51 20 01/27/25 09:00 98.1 100 98.1 01/27/25 08:00 Room Air* 0 21 Total Intake and Output 01/26/25 01/26/25 01/27/25 15:00 23:00 07:00 Intake Total 850 ml 750 ml Balance 850 ml 750 ml medications Current Medications Medications Dose Ordered Sig/Cris Route Start Time Stop Time Status Last Admin Dose Admin Sodium Chloride 1,000 ml @ 120 mls/hr Q8H20M IV 01/21/25 08:45 01/26/25 13:45 120 MLS/HR Acetaminophen/ Hydrocodone Bitart 1 tab Q4HP PRN PO 01/21/25 08:45 01/27/25 14:00 1 TAB Ondansetron HCl 4 mg Q4HP PRN IV 01/21/25 08:45 Docusate Sodium 100 mg BIDPRN PRN PO 01/21/25 08:45 01/21/25 22:36 100 MG Enoxaparin Sodium 40 mg DAILY SC 01/21/25 10:00 01/27/25 10:21 40 MG Acetaminophen 650 mg Q6HP PRN PO 01/21/25 08:45 01/21/25 22:02 650 MG Morphine Sulfate 2 mg Q4HPRN PRN IV 01/21/25 08:45 01/27/25 09:51 2 MG Nitroglycerin 0.4 mg Q5MINP PRN SL 01/21/25 08:45 Morphine Sulfate 2 mg Q30M PRN IV 01/21/25 08:45 Amlodipine Besylate 5 mg DAILY PO 01/21/25 10:00 01/27/25 09:50 5 MG Lorazepam 1 mg ONCE PRN IV 01/21/25 22:45 Pantoprazole Sodium 40 mg DAILY@0600 PO 01/22/25 06:00 01/27/25 06:06 40 MG Lisinopril 40 mg DAILY PO 01/23/25 10:00 01/27/25 09:49 40 MG Clonidine HCl 0.2 mg Q8HPRN PRN PO 01/23/25 20:15 01/26/25 16:33 0.2 MG Hydralazine HCl 10 mg Q4HPRN PRN IV 01/24/25 04:15 01/25/25 00:37 10 MG Clonazepam 1 mg Q8HP PRN PO 01/24/25 14:30 01/27/25 02:10 1 MG Fluticasone Propionate 50 mcg Q12HR EACHNOSTRI 01/26/25 22:00 01/27/25 09:51 50 MCG Artificial Tears 1 drop Q6HP PRN EACHEYE 01/26/25 11:15 01/27/25 02:15 1 DROP Carvedilol 6.25 mg Q12HR PO 01/26/25 22:00 01/27/25 09:51 6.25 MG Iron Sucrose 110 ml @ 110 mls/hr DAILY@1200 IV 01/27/25 14:00 01/31/25 12:59 Examination: GENERAL:Normal, LUNGS:Normal, ABDOMEN:Normal, SKIN:Normal laboratory and microbiology Laboratory Tests 01/27/25 09:17 Test 01/27/25 09:17 Range/Units Serum Glucose 91 74-106 mg/dL Microbiology Date/Time Source Procedure Growth Status 01/24/25 00:00 Nose MRSA Screen - Final Complete Labs and/or images reviewed: Labs reviewed by me, Image(s) reviewed by me Problem List/Assessment/Plan Problem List/Assessment/Plan 1. MS flare Monitor, neurology consult, MRI brain, MRI spine, IV solumedrol 2. HTN Monitor, antihypertensives, DVT prophylaxis , PPI 3. Microcytic anemia IV iron 4. Hypokalemia Replace Assessment/Plan Subjective: Patient is awake and alert. Objective: Patient appears to be doing better. Patient was supposed to get last dose of Solu-Medrol yesterday however was not given. We will give last dose today. Patient is also found to have anemia, we will start on IV iron. Patient states that Klonopin is working well with her anxiety. Patient is requesting some Klonopin at discharge. Patient will also need a Medrol dose taper pack. Patient will need 5 total doses of IV Solu-Medrol at 1000 mg. Plan: Continue current treatment. Planned for possible discharge tomorrow, initiate IV iron, complete Solu-Medrol dose today Plan discussed with: Patient My Orders My Orders Orders - CYN BALLARD Procedure Category Date Status Time Carvedilol Tablet PHA 01/26/25 In Process (Coreg Tablet) 22:00 Iron Sucrose Complex PHA 01/27/25 In Process (Venofer) 14:00 Dietary Evaluation Review Comments: Avoid Na, monitor PO intake to meet 75% of her needs Expected Outcomes/Goals: minimize multiple sclerosis episode Date of Service: Jan 27, 2025 Billing Provider: TETE NAVARRO MD Common Visit Codes: [id number] INP/OBS CARE (MOD) CYN BALLARD Jan 27, 2025 14:09
[2025-01-27] MEDS: IRON SUCROSE COMPLEX 110 ML IV SCH (14:30)
[2025-01-27] MEDS: POTASSIUM EFFERVESENT TAB 25 MEQ PO ONE (14:31)
[2025-01-27] MEDS: CARVEDILOL 3.125 MG TAB PO SCH (21:19)
[2025-01-28 01:00] VITALS: BP 151/88; PULSE 90; RESP 19; TEMP 98.4; O2SAT 93
[2025-01-28 05:00] VITALS: BP 148/83; PULSE 77; RESP 17; TEMP 98; O2SAT 96
[2025-01-28 08:00] VITALS: PULSE 103; PULSE 81; RESP 20; O2SAT 98
[2025-01-28 08:06] VITALS: BP 146/80; PULSE 81; RESP 20; TEMP 98.5; O2SAT 98
[2025-01-28] MEDS ORDERED: CLON-853 PO (09:48)
[2025-01-28] MEDS ORDERED: FERR-7 PO (09:48)
[2025-01-28] MEDS ORDERED: METH4PAK PO (09:48)
--- NOTE | 2025-01-28 09:50 | DVHDS2 ---
Discharge Summary Date of Admission Jan 21, 2025 at 08:38 Date of Discharge: Jan 24, 2025 Admitting Diagnosis Multiple sclerosis faire Labs/Diagnostic Data: Laboratory Results Test 01/28/25 08:59 01/27/25 09:17 01/21/25 04:16 Eosinophils (%) (Auto) 0.1 % (0.0-7.0) Eosinophils # (Auto) 0 10 ^3/uL (0-0.8) Basophils # (Auto) 0 10 ^3/uL (0-0.2) Nucleated Red Blood Cells 0.4 % Magnesium Level 2.0 mg/dL (1.6-2.6) Urine Color Light-yellow (Yellow) Urine Clarity Clear (Clear) Urine pH 6.5 (5.0-9.0) Urine Specific [place] 1.027 (1.001-1.035) Urine Protein Negative (Negative) Urine Ketones Negative (Negative) Urine Blood Trace /uL (Negative) Urine Nitrite Negative (Negative) Urine Bilirubin Negative (Negative) Urine Urobilinogen Normal mg/dL (Negative) Urine Leukocyte Esterase Negative /uL (Negative) Urine RBC 1 /hpf (0 - 4) Urine Microscopic WBC 1 /HPF (0-5) Urine Squamous Epithelial Cells Few /hpf (<5) Urine Bacteria None seen /hpf (None Seen) Urine Mucus Few (None Seen) Urine Glucose Normal mg/dL (Normal) Brief Hx & Hospital Course: Patient was admitted for MS flare. Patient was given Solu-Medrol IV 1000 mg doses x5. Patient reported increased improvement in movement. Patient was subsequently found to have microcytic anemia was started on IV iron infusions and was sent home with the iron. Patient was also seen by neurologist who did not believe patient had MS. Regardless patient was sent home on Medrol Mk. Patient was sent on Klonopin x7 days and was advised to follow up with PCP for further refills. Patient did verbalize understanding. Condition at Discharge: Fair Final Diagnosis/Problems List 1. MS flare 2. HTN 3. Microcytic anemia 4. Hypokalemia Discharge Disposition: Home Discharge Instruct/Medications Diet: Cardiac 2g Na,low cholest Activity: No Restrictions, As Tolerated Follow Up/Referral: pcp 1 week neurology within 2 weeks Discharge Statement: "Patient was advised to return to the ER or call 911 if any headaches, dizziness, shortness of breath, chest pain, abdominal pain, bleeding, fevers, or worsening of medical condition. Patient was counseled about treatment plan, medications, possible side effects, patientverbalized understanding. All questions were answered to the best of my ability. This discharge took greater then 30 minutes in planning, reviewing documentation, counseling the patient, and discussing with other team members." ASSESSMENT ASSESSMENT Assessment 1. MS flare 2. HTN 3. Microcytic anemia 4. Hypokalemia CYN BALLARD Jan 28, 2025 09:50
[2025-01-28 09:58] LABS: Basophils # (auto) 0 10 ^3/uL (0-0.2); Basophils % (auto) 0.1 % (0.0-2.0); Eosinophils # (auto) 0 10 ^3/uL (0-0.8); Hematocrit 28.8 % (36.0-46.0); Hemoglobin 9.3 g/dL (12.2-16.2); Lymphocytes # (auto) 0.6 10 ^3/uL (0.4-5.4); Monocytes # (auto) 0.4 10 ^3/uL (0-1.3); Monocytes % (auto) 3.2 % (0.0-12.0)
[2025-01-28 10:00] LABS: Lymphocytes % (auto) 4.9 % (10.0-50.0); Mean Corpuscular Hemoglobin 25.8 pg (28.0-32.0); Mean Corpuscular Hgb Conc. 32.5 g/dL (32.0-36.0); Mean Corpuscular Volume 79.4 fL (80.0-100.0); Neutrophils # (auto) 10.9 10 ^3/uL (1.6-8.6); Neutrophils % (auto) 91.8 % (37.0-80.0); Nucleated Red Blood Cells % 0.2 %; Platelet Count (auto) 263 10^3/uL (140-450); Red Blood Cells 3.62 10^6/uL (4.0-5.20); Red Cell Distribution Width 19.3 % (11.8-14.3); White Blood Cell 11.9 10^3/uL (4.4-10.8)
[2025-01-28 10:04] VITALS: BP 146/80; PULSE 81; RESP 20; TEMP 98.2; O2SAT 98
[2025-01-28 10:04] LABS: % Iron Saturation 101.3 % (15-50)
[2025-01-28 10:05] LABS: Alanine Aminotransferase 24 U/L (7-40); Albumin 3.3 g/dL (3.2-4.8); Alkaline Phosphatase 64 U/L (46-116); Anion Gap 9 (5-15); Aspartate Aminotransferase 16 U/L (13-40); BUN/Creatinine Ratio 28.8 (10.0-20.0); Bilirubin, Total 0.3 mg/dL (0.2-1.0); Blood Urea Nitrogen 21 mg/dL (9-23); Calcium 8.9 mg/dL (8.7-10.4); Carbon Dioxide 26 mmol/L (20-31); Chloride 104 mmol/L (98-107); Potassium 3.8 mmol/L (3.5-5.1); Sodium 139 mmol/L (136-145)
[2025-01-28 10:07] LABS: Glucose 159 mg/dL (74-106); Total Protein 5.7 g/dL (5.7-8.2)
== END 2025-01-28 10:45 | disposition home or self-care (01) | DRG 43 ==
LOC: ER 23:23 → OVERFLOW 01-21 08:38 → TELE-CENTR 01-21 08:40
PROVIDERS: ADMIT Nurse Practitioner; ATTEND Nurse Practitioner
DX: G35 Multiple sclerosis (principal); D50.9 Iron deficiency anemia, unspecified; E87.6 Hypokalemia; I10 Essential (primary) hypertension; F17.200 Nicotine dependence, unspecified, uncomplicated; Z88.0 Allergy status to penicillin; Z79.2 Long term (current) use of antibiotics; Z83.3 Family history of diabetes mellitus; Z82.49 Family history of ischemic heart disease and other diseases of the circulatory system; Z79.899 Other long term (current) drug therapy
CPT/HCPCS: 36415; 70553; 71045; 72142; 72157; 80048; 80053; 81001; 83540; 83550; 83735; 85025; 87081; 96365; 96375; 97116; 97163; 97530; G0378; J1756; J2405